=== PATIENT | female | born 1950 | race Caucasian/White ===

== ENCOUNTER 2023-10-26 22:11 | Inpatient (IN) | payer OTHER, SELFPAY ==
[2023-10-26] VITALS (15 sets, daily range): BP systolic 67–100; BP diastolic 44–79; BMI 42.7
--- NOTE | 2023-10-26 20:34 | ED.GENMED ---
History of Present Illness
General
Chief Complaint: Abdominal Pain
Source: patient
Exam Limitations: none
Time Seen by Provider: 10/26/23 20:15
Travel History
Have you had any contact with someone who has COVID-19?: No
Do you have any symptoms of coronavirus? Fever > 100 degrees, chills, cough, shortness of breath, sore throat, loss of taste or smell, muscle aches, or headache?: No
History of Present Illness
History of Present Illness:
See MDM
Past History
Past History
ED Past Medical History: Asthma, Cancer (Colon CA, ), COPD, HTN, Hypercholesterolemia, NIDDM and Other (DVT, IVC filter removed, Diverticulitis, IBS, Anemia, Umbilical hernia)
ED Past Surgical History: Bowel resection, Cholecystectomy, Gynecological (Ectopic ) and Other (Cyst removed from liver/Pancreas, Port)
Social History
Tobacco: Former smoker
Alcohol: None
Personal:
Living: with family
Phy Exam
Physical Exam
Physical Exam:
See MDM
Course
Orders/Labs/Results
Orders:
Orders
10/26/23 20:26
Electrocardiogram (*1) Urgent
Reason for Study: Other
Other Reason for Exam: sepsis
Cardiac Monitoring- Treatment ONCE
EKG- Treatment ONCE
IV Insert/Care/Rem.- Treatment PRN
Urinalysis Reflex To Culture Urgent
CR Chest - 2 Views Urgent
Comment:
Reason For Exam: weak
10/26/23 20:30
Type+Screen Urgent
Complete Blood Count/With Diff Urgent
Lactic Acid Q4H
Comment: CANCEL 2nd LACTIC ACID IF 1st LACTIC ACID IS LESS THAN 2
Blood Culture Q30M
RAVEN Source: Blood/Venous
Specimen Description:
Blood Culture Q30M
RAVEN Source: Blood/Venous
Specimen Description:
10/26/23 20:32
CT Abd/pelvis Wo Iv Cont Urgent
Comment: hx SBO from hernia
Reason For Exam: periumbilical pain
HYDROmorphone [Dilaudid] 0.5 mg IV NOW STA
10/26/23 20:50
Comprehensive Metabolic Panel Urgent
10/26/23 21:49
Vancomycin 2000 mg IVPB x 1 LOADING DOSE Vancomycin [Vancocin] 2,000 mg 0.9% Sodium Chloride 500 ml [Nss] 500 ml IV NOW
Zosyn 3.375 grams IVPB NOW Piperacillin/Tazo 3.375 Gram [Zosyn] 3.375 gram in 50 ml IV NOW
10/27/23 00:30
Lactic Acid Q4H
Comment: CANCEL 2nd LACTIC ACID IF 1st LACTIC ACID IS LESS THAN 2
Abnormal Lab Results
10/26/23 10/26/23
20:30 20:50
WBC 20.6 H 10^3/uL
(4.8-10.8)
Hct 35.1 L %
(37.0-47.0)
MCV 80.1 L fL
(81.0-99.0)
RDW 15.2 H %
(11.5-14.5)
MPV 10.6 H fL
(7.4-10.4)
Abs Immat Gran (auto) 0.2 H 10^3/uL
(0-0.05)
Absolute Neuts (auto) 19.2 H 10^3/uL
(1.4-6.5)
Absolute Lymphs (auto) 0.5 L 10^3/uL
(1.2-3.4)
Immature Gran % 1.1 H %
(0-0.5)
Neutrophils % 93.2 H %
(42.2-75.2)
Lymphocytes % 2.2 L %
(20.5-51.1)
Sodium 129 L mmol/L
(135-145)
Chloride 97 L mmol/L
(98-107)
Carbon Dioxide 17 L mmol/L
(22-30)
BUN 41 H mg/dl
(7-17)
Creatinine 1.1 H mg/dL
(0.6-1.0)
Glucose 145 H mg/dl
(70-99)
Lactic Acid 3.6 H mmol/L
(0.7-2.0)
AST 176 H U/L
(14-36)
ALT 126 H U/L
(0-35)
Alkaline Phosphatase 214 H U/L
(38-126)
Total Protein 4.7 L g/dl
(6.3-8.2)
Albumin 2.1 L g/dl
(3.5-5.0)
10/26/23 20:30
10/26/23 20:50
Vital Signs
Initial and Last Documented VS:
Initial Vital Signs
Temp Pulse Resp BP Pulse Ox
97.7 F 110 20 82/57 97
10/26/23 19:45 10/26/23 19:45 10/26/23 19:45 10/26/23 19:45 10/26/23 19:45
Last Documented Vital Signs
Temp Pulse Resp BP Pulse Ox
97.7 F 100 24 93/61 95
10/26/23 19:45 10/26/23 21:30 10/26/23 21:30 10/26/23 21:30 10/26/23 21:30
MDM/Problems Addressed
Differential Diagnosis Includes:
HPI and MDM Narrative:
73-year-old female presenting with mid abdominal pain and nausea. Patient did have a bowel movement today. Patient was recently admitted to the hospital with similar issues which was found to be closed-loop hernia. Patient complaining of
umbilical pain again
On exam,, patient is weak and fatigued. She has palpable mid abdominal hernia. Will give IV pain medicine and attempt to reduce
Physical exam
General: Uncomfortable
HEENT: protecting airway
Neck: appears supple
CV: No evidence of cyanosis
Resp: No accessory muscle use
Abd: Non-distended. Periumbilical hernia palpated. Suprapubic tenderness
Extremities: No deformities
Neuro: alert
Psych: Normal affect
Skin: Intact
Problems Addressed including Acute and Chronic Conditions affecting care:
1. Periumbilical hernia
Acuity: acute
Prognosis: unstable
Details: No skin changes noted. Patient has a history of closed-loop hernia. Will try to reduce and will obtain CT
Updates
After IV Dilaudid, I was tried to reduce the umbilical hernia. Patient feeling somewhat better. However, most of her pain appears to be along the suprapubic area. The suprapubic area feels large and distended.
CT is concerning for large umbilical hernia. Given the lab abnormalities, general surgery made aware with concern for possible bowel strangulation
General surgery evaluated the CT and diagnosed free air. Patient started on vancomycin and Zosyn.
Differential Diagnosis (but not limited to): Small bowel obstruction, umbilical hernia
Testing considered: Ultrasound
Drug therapy (if applicable): OTC meds, please see d/c instruction regarding Rx drugs
Amount and/or Complexity of Data Reviewed
Clinical info obtained from: Patient
External data reviewed: Recent admission for similar symptoms and found to have small bowel obstruction related to the hernia
Labs I independently reviewed (but not limited to): Elevated lactic acid and white blood cell count
Radiology: The CT scan was personally and independently reviewed. In addition, official CT report reviewed.
Pulse Ox: not hypoxic
EKG independently reviewed: N/A
Oracle Architect: Sinus rhythm
Critical Care: The high probability of a clinically significant, sudden or life threatening deterioration of the gastrointestinal system(s) required my full and direct attention, intervention and personal management. The aggregate critical care time
was 33 minutes. This time is in addition to time spent performing reported procedures but includes the following:
[x] Data Review and interpretation
[x] Patient assessment and monitoring of vital signs
[x] Documentation
[x] Medication orders and management
Risk of Complication:
Social Determinants of health: Good social support
Discussed with other providers: Hospitalist, general surgery
Escalation of Care includes Admit/Obs: Given the intra-abdominal free air, case discussed with surgery and will admit
Occasional wrong word or 'sound a like' substitutions may have occurred due to the inherent limitations of voice recognition software. Read the chart carefully and recognize, using context, where substitutions have occurred.
*Critical Care Note
Total Time (30-74mins, 75-104mins- exclusive of procedures): 33 min
ED Attending Note
-
Portions of this chart may have been created with voice recognition software.� Occasional wrong word or��sound alike� substitutions may have occurred due to the inherent limitations of voice recognition software.
Discharge Plan
Departure
Patient Disposition: Admit
Date of Disposition: 10/26/23
Time of Disposition: 21:55
Admit to: IMU
Presentation/result/management discussed w/ accepting MD/DO: Hospitalist
Discharge Problem:
Bowel perforation, Hernia, umbilical
Prescriptions:
No Action
pravastatin 40 MG tablet
40 mg PO QPM
Hold Instructions: Resume on 11/05/23. tll liver tests are stable
montelukast 10 MG tablet
10 mg PO QPM
albuterol sulfate 90 mcg/actuation Hfa Aerosol Inhaler
1 puff INHALATION R QIDPRN PRN (Reason: sob/wheezing)
losartan 25 mg Tablet
25 mg PO DAILY
insulin asp prt-insulin aspart [Novolog Mix 70-30FlexPen U-100] 100 unit/mL (70-30) Insulin Pen
12 unit SC QPM
cholecalciferol (vitamin D3) 25 mcg (1,000 unit) Tablet
25 mcg PO DAILY
insulin asp prt-insulin aspart [Novolog Mix 70-30FlexPen U-100] 100 unit/mL (70-30) Insulin Pen
12 unit SC DAILYPRN PRN (Reason: if BS >150) Qty: 0 0RF
Referrals:
UNKNOWN - PT DOES,NOT KNOW [Unknown Provider] -
Interventions
Interventions:
*Risk Screen - Suicide Last Done: 10/26/23 19:54
*Neglect/Abuse Screening Last Done: 10/26/23 19:49
*ED COVID-19 Vaccine History Last Done: 10/26/23 19:48
FV-Kjdqof-Azkcuxlahm Assessment Last Done: 10/26/23 19:52
[2023-10-26] MEDS: DILAUDID 0.5 MG IV (20:36)
[2023-10-26 20:46] LABS: % Eosinophils 0.6 % (0-6); % Immature Granulocytes 1.1 % (0-0.5); % Lymphocytes 2.2 % (20.5-51.1); % Monocytes 2.9 % (1.7-9.3); % Neutrophils 93.2 % (42.2-75.2); Absolute Eosinophils 0.1 10^3/uL (0-0.7); Absolute Immature Granulocytes 0.2 10^3/uL (0-0.05); Absolute Lymphocytes 0.5 10^3/uL (1.2-3.4); Absolute Monocytes 0.6 10^3/uL (0.1-0.6); Absolute Neutrophils 19.2 10^3/uL (1.4-6.5); Hematocrit 35.1 % (37.0-47.0); Hemoglobin 12.4 g/dL (12.0-16.0); Mean Corp Hgb Conc. 35.3 g/dL (33.0-37.0); Mean Corpuscular Hgb 28.3 pg (27.0-31.0); Mean Corpuscular Volume 80.1 fL (81.0-99.0); Mean Platelet Volume 10.6 fL (7.4-10.4); Nucleated Red Blood Cells % 0 %; Platelet Count 279 10^3/uL (130-400); Red Blood Cell Count 4.38 10^6/uL (4.20-5.40); Red Cell Dist. Width 15.2 % (11.5-14.5); White Blood Cell Count 20.6 10^3/uL (4.8-10.8)
[2023-10-26 20:50] LABS: Lactic Acid 3.6 mmol/L (0.7-2.0)
[2023-10-26 21:14] LABS: ALT (SGPT) 126 U/L (0-35); AST (SGOT) 176 U/L (14-36); Albumin 2.1 g/dl (3.5-5.0); Alkaline Phosphatase 214 U/L (38-126); Blood Urea Nitrogen 41 mg/dl (7-17); Calcium 9.2 mg/dl (8.4-10.2); Carbon Dioxide 17 mmol/L (22-30); Chloride 97 mmol/L (98-107); Estimated Creatinine Clearance 12 ml/min; Glucose 145 mg/dl (70-99); Potassium 3.5 mmol/L (3.5-5.1); Sodium 129 mmol/L (135-145); Total Bilirubin 1.2 mg/dl (0.2-1.3); Total Protein 4.7 g/dl (6.3-8.2); eGFR 53.06
--- NOTE | 2023-10-26 21:56 | HPS.HSE ---
Addendum entered and electronically signed by Sana Weller MD 10/26/23 22:47:
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
presenting with abdominal pain.� Patient septic with hypotension, tachycardia, leukocytosis.� Examination consistent with incarcerated umbilical hernia.� CT abdomen shows acute small bowel perforation within an anterior abdominal wall hernia with
pneumoperitoneum and severe anterior abdominal wall soft tissue emphysema.� There is also a 13.3 cm complex abscess in the lower anterior abdominal wall.� There is also severe peritoneal metastatic disease, hepatic metastases, severe chronic left
hydroureteronephrosis secondary to obstructing malignancy in the left retroperitoneum.�
N.p.o., IV fluids, Zosyn.� Surgery to take to the OR.
Original Note:
Family Physician
-
Family Physician: Yovana Duarte DO
Chief Complaint
-
abdominal pain associated with nausea/diarrhea
History of Present Illness
73 year old with PMH for colon ca, COPD, HTN, HLD, IDDM, DVT, diverticulitis, IBS, anemia umbical hernia presented to us with mid abdomen pain since . stated nausea, stated multiple loose stools per day. denied fever, chills, AVILA, dizzy.
denied chest pain, sob. denied dysuria or hematuria.
CT with ACUTE SMALL BOWEL PERFORATION within an ANTERIOR ABDOMINAL WALL HERNIA with PNEUMOPERITONEUM and SEVERE ANTERIOR ABDOMINAL WALL SOFT TISSUE EMPHYSEMA.
2. � LARGE 13.3 cm COMPLEX ABSCESS in the lower anterior abdominal wall inferior to the hernia.
3. � SEVERE PERITONEAL METASTATIC DISEASE (METASTATIC COLON CANCER).
4. � Multiple hepatic metastases.
5. � Severe chronic left hydroureteronephrosis secondary to obstructing malignancy in the left retroperitoneum.
6. � Severe diffuse hepatic steatosis.
7. � Previous cholecystectomy and sigmoidectomy.
received vanco and Zosyn. admitting for further management.
patient was admitted 10/19 to 10/23 with SBO improved with conservative measures. patient was also noted to have liver mass, slightly elevated CEA recommended oncology follow up.
Medical History
Past Medical History
Past Medical History: Reports Other
Additional Past Medical History:
Asthma, COPD, history of DVT, hypertension, hyperlipidemia, history of diverticulitis, IBS, stress incontinence, history of colon cancer
Past Surgical History: Reports Other
Additional Past Surgical History:
Ectopic surgery, cholecystectomy, partial bowel surgery secondary to cyst, IVC filter placement, cyst removed from the pancreas, colectomy for cancer, right chest port placement
Social History
Tobacco: Non-smoker
Alcohol: None
Drug: None
Personal: Single
Living: With Family
Family History
Family History: Not pertinent
Allergies / Home Medications
Allergies reflects when Allergies were last updated in [facility].
Home Medications with original date entered in [facility]
Allergy/Medication List:
Allergies
Allergy/AdvReac Type Severity Reaction Status Date / Time
levofloxacin Allergy Unknown Unknown Verified 10/26/23 19:51
mold Allergy Unknown Unknown Verified 10/26/23 19:51
Iodinated Contrast Media Allergy heart Verified 10/26/23 19:51
races,SOB
metformin Allergy SOB,heart Verified 10/26/23 19:51
race
oxaliplatin Allergy Shortness Verified 10/26/23 19:51
of Breath
pollen extracts Allergy Nasal Verified 10/26/23 19:51
congestion
- seasonal
Sulfa (Sulfonamide Allergy SOB ,Heart Verified 10/26/23 19:51
Antibiotics) race
Tetanus Vaccines and Toxoid Allergy heart Verified 10/26/23 19:51
racing ,SOB
Home Medications
montelukast 10 mg tablet 10 mg PO QPM asthma 01/21/21
pravastatin 40 mg tablet 40 mg PO QPM High cholesterol 01/21/21
albuterol sulfate 90 mcg/actuation aerosol inhaler 1 puff inhalation R QIDPRN PRN sob/wheezing 05/19/23
cholecalciferol (vitamin D3) 25 mcg (1,000 unit) tablet 25 mcg PO DAILY Supplement 10/19/23
insulin aspar prot-insulin aspart 100 unit/mL (70-30) subcutaneous pen (Novolog Mix 70-30FlexPen U-100) 12 unit SC QPM Diabetes 10/19/23
losartan 25 mg tablet 25 mg PO DAILY Blood Pressure 10/19/23
insulin aspar prot-insulin aspart 100 unit/mL (70-30) subcutaneous pen (Novolog Mix 70-30FlexPen U-100) 12 unit (0.12 mL) SC DAILYPRN PRN if BS >150 #0 mL 10/23/23
Review of Systems
-
Constitutional: Reports No Symptoms
EENT: Reports No Symptoms
Respiratory: Reports No Symptoms
Cardiac: Reports No Symptoms
Abdomen/GI: Reports Abdominal Pain, Nausea, Vomiting and Diarrhea
: Reports No Symptoms
Musculoskeletal: Reports No Symptoms
Skin: Reports No Symptoms
Neurological: Reports No Symptoms
Endocrine: Reports No Symptoms
Hematologic/Lymphatic: Reports No Symptoms
Psych: Reports No Symptoms
Physical Exam
Vital Signs
Vital Signs
Temp Pulse Resp BP Pulse Ox
97.7 F 100 24 93/61 95
10/26/23 19:45 10/26/23 21:30 10/26/23 21:30 10/26/23 21:30 10/26/23 21:30
Physical Exam
General: Well Developed, Well Nourished and No Apparent Distress
HEENT: NormoCephalic, Moist mucous membranes and Atraumatic
Respiratory: Clear
Cardiac: S1/S2 and Regular Rhythm; No Murmur or Rub
GI: Soft, Tender, Distended and Other (umblical hernia); No Organomegaly
Rectal: Deferred by Provider
Musculoskeletal: No Clubbing, No Cyanosis and No Edema
Skin: No Rash
Neuro: AO x 3 and Nonfocal/grossly intact
Psych: Calm
Laboratory Results
-
10/26/23 20:30
10/26/23 20:50
Laboratory Results
Lactic Acid 3.6 mmol/L (0.7-2.0) H 10/26/23 20:30
Total Bilirubin 1.2 mg/dl (0.2-1.3) 10/26/23 20:50
AST 176 U/L (14-36) H 10/26/23 20:50
ALT 126 U/L (0-35) H 10/26/23 20:50
Alkaline Phosphatase 214 U/L (38-126) H 10/26/23 20:50
Data Reviewed
-
CT Scan: Report Reviewed by me
Lab Data: Labs Reviewed by me
Impression/Plan
-
#severe sepsis/ abdominal pain associated with n/diarrhea likely from incarcerated hernia/ small bowel perforation/complex abscess
-CT abdomen pelvis with ACUTE SMALL BOWEL PERFORATION within an ANTERIOR ABDOMINAL WALL HERNIA with PNEUMOPERITONEUM and SEVERE ANTERIOR ABDOMINAL WALL SOFT TISSUE EMPHYSEMA. LARGE 13.3 cm COMPLEX ABSCESS in the lower anterior abdominal wall
inferior to the hernia.� SEVERE PERITONEAL METASTATIC DISEASE (METASTATIC COLON CANCER). � Multiple hepatic metastases.� Severe chronic left hydroureteronephrosis secondary to obstructing malignancy in the left retroperitoneum.� Severe diffuse
hepatic steatosis.� Previous cholecystectomy and sigmoidectomy.
-severe sepsis as evident by wbc, hypotension, tachycardia, lactic acid
-blood culture sent from ER
-iv v Zosyn
-NPO
-fluids continued for hydration
-surgery consulted
#hyponatremia/dusty/metabolic acidosis
-na 129, cr 1.1, co2 17
-sodium bicarb push
-fluids continued
-monitor BMP in am
#hxt of colon ca
-hxt of liver mets
-s/p resection
# hxt of Hypertension
-patient is hypotensive in ER
-hold losartan
# Hyperlipidemia-hold pravastatin with elevated LFTs
# Gbfoessv-Ikov-Fcyhj and sliding scale coverage
-hold 70/30
-sliding scale
-
# History of sigmoidectomy 2020 for sigmoid carcinoma
Patient finished 6 months of chemotherapy in June 2023 and is on surveillance.
#Liver masses concerning- oncology evaluation
-LFT elevation from liver mass
# Chronic hydronephrosis
-Left nephrostomy tube was advised in the past by urology however patient and daughter opted not to do it.
-Atrophy of the kidney noted on the left side-patient and daughter aware about this
# Asthma/COPD-patient takes Singulair as outpatient
# History of DVT IVC filter placement and removal in December 2021
# DVT prophylaxis
-scd
# CODE STATUS-full code
[2023-10-26] MEDS: ZOSYN 50 IV (22:27)
--- NOTE | 2023-10-26 22:38 | CON.GS ---
Medical History
-
Chief Complaint: Abdominal pain
History of Present Illness:
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
sigmoidectomy with SBR x2 by Drs. Pino and Abraham in 05/2021. She was recently admitted to from 10/19 to 10/23 for management of an SBO. She was followed by the CRS service at that time. Per report she had return of bowel function and was
tolerating LRD. She reports abdominal pain associated with her hernia since discharge. No significant nausea or vomiting. No fevers or chills. Daughter is at bedside and was present for the encounter.
Past Medical History
Past Medical History: Cancer (Stage IV colon cancer), COPD, HTN, Hypercholesterolemia and IDDM
Past Surgical History: Bowel Resection (Robotic sigmoidectomy and SBRx2 in 2020, Robert-en-Y hepaticojejunostomy as a child) and Cholecystectomy
Social History
Tobacco: Former Smoker
Alcohol: None
Drug: None
Family History
Family History: Reviewed & Not Pertinent
Allergies / Home Medications
Allergy/AdvReac Type Severity Reaction Status Date / Time
levofloxacin Allergy Unknown Unknown Verified 10/26/23 19:51
mold Allergy Unknown Unknown Verified 10/26/23 19:51
Iodinated Contrast Media Allergy heart Verified 10/26/23 19:51
races,SOB
metformin Allergy SOB,heart Verified 10/26/23 19:51
race
oxaliplatin Allergy Shortness Verified 10/26/23 19:51
of Breath
pollen extracts Allergy Nasal Verified 10/26/23 19:51
congestion
- seasonal
Sulfa (Sulfonamide Allergy SOB ,Heart Verified 10/26/23 19:51
Antibiotics) race
Tetanus Vaccines and Toxoid Allergy heart Verified 10/26/23 19:51
racing ,SOB
Medication Instructions Recorded Confirmed Type
montelukast 10 mg tablet 10 mg PO QPM asthma 01/21/21 10/19/23 History
pravastatin 40 mg tablet 40 mg PO QPM High cholesterol 01/21/21 10/19/23 History
insulin aspar prot-insulin aspart 12 unit SC QPM Diabetes 10/19/23 10/19/23 History
100 unit/mL (70-30) subcutaneous
pen (Novolog Mix 70-30FlexPen
U-100)
losartan 25 mg tablet 25 mg PO DAILY Blood Pressure 10/19/23 10/19/23 History
Review of Systems
-
A 10 point review of systems was completed, and was negative except as per HPI.
Physical Exam
Vital Signs
Temp Pulse Resp BP Pulse Ox
97.7 F 101 21 99/79 97
10/26/23 19:45 10/26/23 22:30 10/26/23 22:30 10/26/23 22:30 10/26/23 22:30
10/25/23 10/26/23 10/27/23
06:59 06:59 06:59
Actual Weight 99.2 kg
Body Mass Index (BMI) 267.5
Lab Results
10/26/23 20:30
10/26/23 20:50
WBC 20.6 10^3/uL (4.8-10.8) H 10/26/23 20:30
Hgb 12.4 g/dL (12.0-16.0) 10/26/23 20:30
Hct 35.1 % (37.0-47.0) L 10/26/23 20:30
Plt Count 279 10^3/uL (130-400) 10/26/23 20:30
Abs Immat Gran (auto) 0.2 10^3/uL (0-0.05) H 10/26/23 20:30
Neutrophils % 93.2 % (42.2-75.2) H 10/26/23 20:30
Physical Exam
General: Well Developed, Well Nourished, No Apparent Distress and Pain
Respiratory: Non Labored Respirations
Cardiac: Irregular Rhythm (Tachycardic)
GI: Soft, Tender (Diffusely, most over hernia), Distended, Incisions (midline well healed), Obese and Other (Peritoneal)
Skin: Warm and Dry
Neuro: Nonfocal/Grossly Intact
Data Reviewed
-
CT Scan: Image Personally Visualized and interpreted
Labs: Labs Reviewed by me
Old Records: Reviewed
Assessment / Plan
-
Patient is a 73 yo F p/w perforated viscus likely secondary to a chronically incarcerated ventral incisional hernia
Natural history and pathophysiology of hernias and perforated bowel was discussed. CT scan imaging and labs were reviewed. Options for management including medical management with bowel rest and antibiotics and a more focused on comfort measures
only versus surgical management with exploratory laparotomy and bowel resection were considered and discussed. Goals of care discussion was had and patient wishes to proceed with further treatment. She is at significantly high risk for operative
complications given her medical comorbidities and clinical presentation with sepsis, perforated bowel, and abscess formation. Using the ACS risk calculator she has a 40% risk of a serious complication, 71% risk of , and 79% risk of discharge
to a half-way or rehab facility. The severity of her illness was discussed with patient and daughter. Patient wished to proceed with surgery.
Plan for exploratory laparotomy, lysis of adhesions, possible bowel resection, possible ostomy, and primary repair of incisional hernia. The procedure itself, as well as the risks, benefits, and alternatives was discussed. Specifically, we
discussed the risks of bleeding, infection, injury to surrounding structures (bowel, bladder, ureters), wound complications, recurrent bowel obstructions, cardiopulmonary complications, need for prolonged intubation, and . Typical
postprocedural recovery including a prolonged hospital stay and discharged to a half-way or rehab facility was discussed. All questions answered. Consent signed.
-- Exploratory laparotomy, lysis of adhesions, possible bowel resection, possible ostomy, and primary repair of incisional hernia
-- NPO, IVF, NGT placement
-- Zosyn
-- Admit to ICU post-operatively
--- NOTE | 2023-10-26 22:59 | W.SUR.PREOP ---
Pre-Operative Surgical Note
-
I have examined this patient prior to the performance of the scheduled procedure.
The patient's condition is unchanged from the time of the current History and
Physical and the patient is able to undergo the scheduled procedure.
[2023-10-26] MEDS: SODIUM BICARBONATE 50 MEQ IV (23:25)
[2023-10-26] MEDS: VANCOCIN 540 MG IV (23:25)
[2023-10-27] VITALS (67 sets, daily range): BP systolic 72–130; BP diastolic 39–93; BMI 42.6
--- NOTE | 2023-10-27 01:46 | W.IMMPOSTOP ---
Addendum entered and electronically signed by Darwin Howell MD 10/29/23 08:29:
Dic#[id number]
Original Note:
Surgical Immed Post Op Note
-
Primary Surgeon: Dante
Assisting Surgeon: None
Pre-op Diagnosis: Perforated bowel
Post-op Diagnosis: Perforated bowel
Procedure Performed: Exploratory laparotomy
Anesthesia Type: General
Specimen / Cultures:
1. Abdominal fluid for culture and cytology
Estimated Blood Loss: 3 cc
Complications: None immediately
Operative Findings:
1. Hernia reducible and SB contents viable
2. Frozen pelvis with firm tumor, multiple densely adherent SB loops within the pelvis and adherent to fascia, perforation of small bowel at site of metastatic disease within the fascia, wide feculent contamination within the entire soft tissue
space of the pannus and abdomen
3. < 100 cm proximal small bowel and difficult to determine exact location given prior procedures
4. No good target for enterocolonic bypass, patient goals of care against proximal ostomy
5. Intra-operative discussion with patients daughter and decision maker regarding options, decision to focus on comfort measures only and close abdomen
Plan:
-- NPO, IVF, Zosyn
-- Full code for tonight, tentative plan for transition to CLERICAL ADVISER during day shift (daughter on board, hopeful to allow conversation and decision with patient)
[2023-10-27 01:49] LABS: Glucose - Point of Care 103 mg/dl (70-99)
[2023-10-27] MEDS: NSS 1000 IV ×4 (01:58→14:57)
[2023-10-27 02:22] LABS: Lactic Acid 2.4 mmol/L (0.7-2.0)
[2023-10-27] MEDS: LR 500 IV (02:57)
[2023-10-27] MEDS: LEVOPHED 250 IV ×6 (02:59→23:43)
[2023-10-27] MEDS: ZOSYN 50 IV ×4 (03:06→21:32)
[2023-10-27 05:05] LABS: Hematocrit 35.4 % (37.0-47.0); Hemoglobin 12.5 g/dL (12.0-16.0); Mean Corp Hgb Conc. 35.3 g/dL (33.0-37.0); Mean Corpuscular Hgb 29.1 pg (27.0-31.0); Mean Corpuscular Volume 82.5 fL (81.0-99.0); Mean Platelet Volume 10.3 fL (7.4-10.4); Platelet Count 352 10^3/uL (130-400); Red Blood Cell Count 4.29 10^6/uL (4.20-5.40); Red Cell Dist. Width 15.2 % (11.5-14.5); White Blood Cell Count 21.3 10^3/uL (4.8-10.8)
[2023-10-27 05:18] LABS: Lactic Acid 2.6 mmol/L (0.7-2.0)
[2023-10-27 05:20] LABS: INR 1.64; PT 19.7 Sec (11.4-14.6)
[2023-10-27 05:21] LABS: APTT 33.7 Sec (23.4-35.0)
[2023-10-27 05:47] LABS: ALT (SGPT) 106 U/L (0-35); AST (SGOT) 146 U/L (14-36); Albumin 1.7 g/dl (3.5-5.0); Alkaline Phosphatase 184 U/L (38-126); Blood Urea Nitrogen 39 mg/dl (7-17); Calcium 8.3 mg/dl (8.4-10.2); Carbon Dioxide 19 mmol/L (22-30); Chloride 100 mmol/L (98-107); Direct Bilirubin 0.8 mg/dl (0.0-0.4); Estimated Creatinine Clearance 44 ml/min; Glucose 117 mg/dl (70-99); Potassium 3.5 mmol/L (3.5-5.1); Sodium 132 mmol/L (135-145)
[2023-10-27 06:04] LABS: Glucose - Point of Care 116 mg/dl (70-99)
--- NOTE | 2023-10-27 06:22 | PTCARENOTE ---
received pt from PACU, per OR nurse, patient was unable to have surgery performed due to complications. patients family was made aware of what happened from the OR Doctor. pts family wants her monitored throughout night, will be back in am to
discuss hospice plans.
patient has hypotention, patient now has levo running and titrated from 2 to 20 mcg, pt has ivf at 100 as well, patient has ashley which is oliguric for janell urine, MD aware of decreased urine output. no new orders.
labs drawn and sent, no new orders either.
patient has abdominal wound covered with abd pad, no pain at this time, npo with ice chips, pt has no difficulty swallowing at this time.
daughter at bedside and will return in am.
[2023-10-27] MEDS: NOVOLOG FLEXPEN-LOW RESISTANCE SC ×2 (07:54→12:30)
[2023-10-27] MEDS: OFIRMEV 100 IV ×2 (08:51→16:34)
[2023-10-27] MEDS: PITRESSIN 100 IV ×2 (08:51→18:25)
--- NOTE | 2023-10-27 09:25 | CON.INTV ---
Addendum entered and electronically signed by Darwin Beth MD 10/29/23 13:10:
Critical care statement (referring to when patient was seen and evaluated on 10/27/2023): A total of 40 minutes of critical care time was provided for this patient today. This includes management of unstable vital signs, evaluation of the patient at
bedside, reviewing the patient's pertinent medical records including radiographs, microbiology, laboratory evaluations, and discussion with primary team, consultants, pharmacy, nutrition, physical therapy, case management, charge nurse, critical
care nursing, and respiratory therapy.
Addendum entered and electronically signed by Darwin Beth MD 10/27/23 15:47:
Addition to physical exam:
+3 LE pitting edema
Reduced bowel sounds
Original Note:
Consultation
Consultation Request
Date/Time Consultation Requested: 10/26/2023 - 2308
Date/Time Consultation Performed: 10/27/2023 - 832
Requesting Provider: Kelsey ROUSE
Performing Provider: Dr. Beth
Reason for Consultation: Shock
Medical History
-
Chief Complaint: Abdominal pain
History of Present Illness:
73-year-old female with a past med history of metastatic sigmoid invasive adenocarcinoma (originally Dx 05/2021) s/p sigmoidectomy + partial small bowel resections (due to small bowel adhesions), umbilical hernia, COPD, history of DVT, hypertension,
hyperlipidemia and DM type II with recent hospitalization on 10/19or due to abdominal pain from SBO. Conservative management employed with n.p.o. status, IV fluids and pain control. CT A/P at the time showed a 2.5 cm mass in the LLL
of the liver, which is new compared to prior CT C/A/P from April 2023 suggesting she has worsening hepatic spread of her cancer. She was going to see oncology as an outpatient to discuss restarting chemotherapy which was last given in summer 2022.
Now as of yesterday, patient had pain in her hernia spot, was pale, diaphoretic and blood pressure was in the 60s. In the ER her BP was 84/58, pulse rate 99, afebrile to 97.7 �F, and saturating 96% on room air. She had abdominal pain and was
vomiting, and guarding her LLQ of her abdomen. Labs showed hyponatremia to 129, metabolic acidosis with a serum bicarbonate of 17, AG of 15, elevated creatinine of 1.1, lactate was elevated at 3.6, leukocytosis to 20.6, and she was given pain
medications with Dilaudid. CT abdomen/pelvis showed small bowel perforation within her known anterior abdominal hernia with pneumoperitoneum and severe anterior abdominal wall soft tissue emphysema. Also just inferior to the anterior abdominal
wall hernia was a large 13.3 cm complex abscess. There is also evidence of hepatic metastasis, peritoneal metastatic disease, and diffuse hepatic steatosis with chronic left hydroureteronephrosis. Surgery was consulted for exploratory laparotomy,
and intraoperative findings revealed densely adherent small bowel loops within the pelvis and adherent to fascia with small bowel perforation seen at the site of metastatic disease within the fascia, and fecal contamination within the peritoneum.
Less than 100 cm of proximal small bowel was seen and it was difficult to determine an exact location with no good target for enterocolonic bypass. Intraoperative discussion held with the surgeon and the daughter and decision made to focus on
comfort. No surgery was done, the abdomen was closed and the patient was transferred to the medical ICU as she was hypotensive requiring Levophed. Critical care services consulted for additional recommendations.
PMHx: Sigmoid adenocarcinoma s/p sigmoidectomy + partial small bowel resection (05/2021) + adjuvant chemotherapy (summer 2022) c/b hepatic metastasis, COPD, Hx of DVT s/p IVC filter, hypertension, hyperlipidemia, DM type II, chronic hydronephrosis,
fatty liver, history of SBO due to colon adenocarcinoma, umbilical hernia, history of COVID-19 (October 25)
PSHx: Ectopic surgery, cholecystectomy, partial bowel surgery secondary to cyst, IVC filter placement, cyst removed from the pancreas, colectomy for cancer, right chest port placement
Past Medical History
Past Medical History: Other (above as per HPI)
Past Surgical History: Other (above as per HPI)
Social History
Tobacco: Former Smoker
Alcohol: None
Drug: None
Living: With Family
Family History
Family History: CAD (father)
Allergies / Home Medications
Allergies
Allergy/AdvReac Type Severity Reaction Status Date / Time
Iodinated Contrast Media Allergy heart Verified 10/26/23 19:51
races,SOB
levofloxacin Allergy Unknown Verified 10/26/23 22:39
metformin Allergy SOB,heart Verified 10/26/23 19:51
race
mold Allergy Unknown Verified 10/26/23 22:39
oxaliplatin Allergy Shortness Verified 10/26/23 19:51
of Breath
pollen extracts Allergy Nasal Verified 10/26/23 19:51
congestion
- seasonal
Sulfa (Sulfonamide Allergy SOB ,Heart Verified 10/26/23 19:51
Antibiotics) race
Tetanus Vaccines and Toxoid Allergy heart Verified 10/26/23 19:51
racing ,SOB
Home Medications
Medication Instructions Recorded Confirmed Last Taken Type
montelukast 10 mg tablet 10 mg PO QPM asthma 01/21/21 10/26/23 10/18/23 History
pravastatin 40 mg tablet 40 mg PO QPM High cholesterol 01/21/21 10/26/23 10/18/23 History
insulin aspar prot-insulin aspart 12 unit SC QPM Diabetes 10/19/23 10/26/23 10/18/23 History
100 unit/mL (70-30) subcutaneous
pen (Novolog Mix 70-30FlexPen
U-100)
losartan 25 mg tablet 25 mg PO DAILY Blood Pressure 10/19/23 10/26/23 10/18/23 History
Review of Systems
-
History Source: Patient
All other systems: Negative unless noted (12 point ROS performed and is negative unless mentioned above.)
Vitals / Labs / Diagnostic Testing
Vital Signs
Temp Pulse Resp BP Pulse Ox
99.6 F 114 19 92/60 99
10/27/23 08:06 10/27/23 08:15 10/27/23 08:15 10/27/23 07:49 10/27/23 08:15
Lab Data
10/27/23 04:50
10/27/23 04:50
Laboratory Results
10/27/23
04:50
PT 19.7 H
INR 1.64
APTT 33.7
Diagnostic Testing:
Physical Exam
-
HEENT: Normocephalic and Anicteric
Cardiovascular: S1/S2 and Other (Tachycardic)
Respiratory: Clear, Wheeze (Negative) and Rales (bibasilar)
GI: Soft, Distended, Tender (diffusely tender to palpation without peritoneal signs) and Other
Neurology: AO x 3 and Tremors (Negative)
Skin: Warm and Dry
General: Pain (With movement otherwise she appears comfortable) and Chills (Negative)
Assessment
-
Assessment: 73-year-old obese female with a PMHx of metastatic sigmoid invasive adenocarcinoma (originally Dx 05/2021) s/p sigmoidectomy + partial small bowel resections (due to small bowel adhesions), umbilical hernia, COPD, history of DVT s/p
IVC-filter, hypertension, hyperlipidemia and DM type II with recent hospitalization on 10/19or due to abdominal pain from SBO, resolved with conservative management and with imaging showing worsening hepatic metastasis with plans to
follow-up with oncology as an outpatient. Patient now presents with severe abdominal pain found to be hypotensive and imaging revealed small bowel perforation within her anterior abdominal hernia. Patient emergently brought to surgery for
exploratory laparotomy which revealed fecal contamination within her abdomen, severe metastatic disease with small bowel perforation seen at the site of metastasis, and <100 cm of proximal small bowel seen with no good target for an entero-colonic
bypass. Decision made intraoperatively to focus on comfort, and the procedure ended and patient was transferred to the ICU on vasopressors for further management. Critical care services consulted for additional recommendations/management decisions.
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
chronic hydronephrosis, fatty liver, history of SBO due to colon adenocarcinoma, umbilical hernia, history of COVID-19 (October 25)
Impression:
#Small bowel perforation secondary to metastatic invasive sigmoid adenocarcinoma c/b stercoral peritonitis found intra-operatively (ex-lap OR date 10/27/2023 - no surgical intervention performed)
#Septic shock due to above (she also has abscess inferior to her known anterior abdominal wall hernia)
#Lactic acidosis due to shock state as above
#Acute kidney injury due to shock with hypotension and ATN
#Hyponatremia -she does have some chronic hyponatremia with baseline sodium approximately 132�134mmol/L
#Transaminitis - due to hepatic metastasis in the setting of shock
#Metastatic colon adenocarcinoma with hepatic, mesenteric and peritoneal metastasis with Hx of sigmoidectomy + partial small bowel resection
#Abdominal wall complex abscess inferior to known abdominal wall hernia
#Severe chronic left hydroureteronephrosis secondary to metastatic disease
Plan:
- Considering pt has metastatic colon cancer with Hx of partial small bowel resection and no good target for enterocolonic bypass, there is no surgical intervention available besides a proximal ostomy, which the pt is not interested in
- Continue antibiotics with zosyn for now, as the patient is interested in comfort care and discussion of transition to hospice, which I discussed with the patient as well as the daughter and the patient's die sinker apprentice (patient is heavily involved in
their gnosticism and town)
- Continue vasopressors with Levophed and vasopressin for now with goal MAP >65
- Once patient is transitioned to comfort care, will stop antibiotics as well as vasopressors and transition to comfort measures only
- Hospice has been consulted by me
- For now, keep NPO except for small sips of fluids
- trend lactate until <2mmol/L and continue to trend LFTs and sCr; however given that pt is interested in hospice and transitioning to comfort care, little benefit in trending labs as sticking her will only cause more discomfort and in grand scheme
it will not change her chances for recovery given how extensive her cancer is and now with septic shock with stercoral peritonitis; hence I will cancel the q4hr lactate that is ordered and stick to just AM labs; the frequency of lab checks can be
adjusted depending on her clinical status.
- DVT ppx - SCDs for now and then fully DC once pt transitions to hospice
I spoke directly with the patient's die sinker apprentice, as well as the patient herself and the patient's daughter. Patient is interested in transitioning to comfort care and speaking with hospice. When she first arrived to the ICU she wanted to remain full
code, however after reviewing this in detail and considering her diagnosis of metastatic colon cancer with septic shock and without surgical intervention or ability to obtain chemotherapy in her near future, her short-term mortality is extremely
high. Even if we were to continue the vasopressors and keep her n.p.o. and continue antibiotics, without surgical intervention to treat her small bowel perforation her overall prognosis is severely grim. This was discussed with the patient in
layman's terms, and she understands that she does not have long to live and she is okay with this. In light of this, if her heart were to stop or if she were to stop breathing, she does not want to have compressions done and she does not want to be
put on the ventilator. I will thus change her Code Status to DNR/DNI but continue with medical treatment otherwise while awaiting transition to hospice. Emotional support was provided to the patient and all questions were answered.
Data:
CT Abd/Pelvis w/o IV contrast 10-26-2023:
1. � ACUTE SMALL BOWEL PERFORATION within an ANTERIOR ABDOMINAL WALL HERNIA with PNEUMOPERITONEUM and SEVERE ANTERIOR ABDOMINAL WALL SOFT TISSUE EMPHYSEMA.
2. � LARGE 13.3 cm COMPLEX ABSCESS in the lower anterior abdominal wall inferior to the hernia.
3. � SEVERE PERITONEAL METASTATIC DISEASE (METASTATIC COLON CANCER).
4. � Multiple hepatic metastases.
5. � Severe chronic left hydroureteronephrosis secondary to obstructing malignancy in the left retroperitoneum.
6. � Severe diffuse hepatic steatosis.
7. � Previous cholecystectomy and sigmoidectomy.
--- NOTE | 2023-10-27 11:06 | CON.ONC ---
Impression
Impression
metastatic colon cancer, admitted with bowel perforation; s/p ex lap 10/26/23, not amenable to any interventions
Plan
Plan
Discussed with patient and daughter - unfortunately, her extensive metastatic disease with bowel perforation and abscess/infection is not treatable surgically or medically. Recommended we focus on comfort measures. Discussed code status and she
initially requested FULL CODE, though I strongly encouraged DNR/DNI. Will follow along peripherally.
Patient History
History of Present Illness
This is a 73 yo F w/ h/o colon cancer, metastatic, who's been on a chemo treatment break for the past few months after a good response to chemo in summer/early fall 2022. She was hospitalized last week with SBO in the setting of cancer progression,
treated conservatively. She contacted our office yesterday with N/V and 10/10 pain, and was sent to the ER. CXR showed free air. CT showed acute small bowel perforation with a a large abscess and severe peritoneal metastatic disease. She was taken
to the OR by Dr. Howell last night, found to have a frozen pelvis with firm tumor; hernia was reduced and SB contents appeared viable. No good target for bypass, so after discussion with daughter, a decision was make to close the abdomen and focus
on comfort measures.
Patient seen this am, daughter and forming machine operator at bedside. Some pain, but comfortable.
Past-Medical/Surgical History
PMH/PSH - as per the hpi
Patient Medication
Medication Instructions Recorded Confirmed Last Taken Type
montelukast 10 mg tablet 10 mg PO QPM asthma 01/21/21 10/26/23 10/18/23 History
pravastatin 40 mg tablet 40 mg PO QPM High cholesterol 01/21/21 10/26/23 10/18/23 History
insulin aspar prot-insulin aspart 12 unit SC QPM Diabetes 10/19/23 10/26/23 10/18/23 History
100 unit/mL (70-30) subcutaneous
pen (Novolog Mix 70-30FlexPen
U-100)
losartan 25 mg tablet 25 mg PO DAILY Blood Pressure 10/19/23 10/26/23 10/18/23 History
Active Medications
Generic Name Dose Route Start Last Admin
Trade Name Freq PRN Reason Stop Dose Admin
Dextrose 12.5 grams 10/27/23 01:35
Dextrose 50% (0.5 Grams/Ml) 50 Ml Syringe IV 11/24/23 01:34
[id number] PRN
hypoglycemia
Protocol
Glucagon 1 mg 10/27/23 01:35
Glucagon 1 Mg Vial IM 11/24/23 01:34
PRN PRN
hypoglycemia
Protocol
Hydromorphone HCl 0.5 mg 10/26/23 22:16
Hydromorphone 0.5 Mg/0.5 Ml Syringe IV 10/27/23 22:16
PACU-Q5MPRN PRN
severe pain
Hydromorphone HCl 0.25 mg 10/26/23 22:16
Hydromorphone 0.5 Mg/0.5 Ml Syringe IV 10/27/23 22:16
PACU-Q5MPRN PRN
moderate pain
Sodium Chloride 1,000 mls @ 100 mls/hr 10/26/23 22:30 10/27/23 03:04
Nss IV 10/27/23 22:16 1,000 mls
PER PROTOCOL CHRISTIANO Administration
Sodium Chloride 1,000 mls @ 80 mls/hr 10/26/23 22:45 10/27/23 01:58
Nss IV 1,000 mls
[id number] CHRISTIANO Administration
Piperacillin Sod/Tazobactam Sod 3.375 gram in 50 mls @ 100 mls/hr 10/27/23 04:00 10/27/23 10:14
Zosyn IV 50 mls
Q6H CHRISTIANO Administration
Norepinephrine Bitartrate 4 mg in 250 mls @ 0 mls/hr 10/27/23 03:00 10/27/23 07:52
Levophed IV 250 mls
PER PROTOCOL CHRISTIANO Administration
Protocol
Per Protocol
Vasopressin 20 units in 100 mls @ 0 mls/hr 10/27/23 08:45 10/27/23 08:51
Pitressin IV 100 mls
PER PROTOCOL CHRISTIANO Administration
Protocol
Per Protocol
Acetaminophen 1,000 mg in 100 mls @ 400 mls/hr 10/27/23 08:41 10/27/23 08:51
Ofirmev IV 10/28/23 08:40 100 mls
Q8HPRN PRN Administration
MILD TO MODERATE PAIN
Protocol
Insulin Aspart 0 units 10/27/23 07:30 10/27/23 07:54
Insulin Aspart Low Resistance 300 Units/3 Ml Pen.Injctr SC 11/24/23 07:29 Not Given
AC CHRISTIANO
Protocol
Meperidine HCl 12.5 mg 10/26/23 22:16
Meperidine 25 Mg/Ml Injection IV 10/27/23 22:16
PACU-Q5MPRN PRN
shivers
Ondansetron HCl 4 mg 10/26/23 22:16
Ondansetron 4 Mg/2 Ml Vial IV 10/27/23 22:16
PACU-ONCEPRN PRN
nausea/vomiting
Prochlorperazine Edisylate 5 mg 10/26/23 22:16
Prochlorperazine 10 Mg/2 Ml Vial IV 10/27/23 22:16
PACU-ONCEPRN PRN
nausea/vomiting
Sodium Chloride 0 flush 10/26/23 23:00
Sodium Chloride 0.9% (Flush) Syringe IV 11/23/23 22:59
PER PROTOCOL CHRISTIANO
Review of Systems
-
All Other Systems: Not reviewed unless documented
Physical Exam
-
General: No Apparent Distress and Conversant
HEENT: Negative Jaundice
Psych: Calm and Intact Judgement/Insight
Labs
Lab Results
WBC 21.3 10^3/uL (4.8-10.8) H 10/27/23 04:50
RBC 4.29 10^6/uL (4.20-5.40) 10/27/23 04:50
Hgb 12.5 g/dL (12.0-16.0) 10/27/23 04:50
Hct 35.4 % (37.0-47.0) L 10/27/23 04:50
MCV 82.5 fL (81.0-99.0) 10/27/23 04:50
MCH 29.1 pg (27.0-31.0) 10/27/23 04:50
MCHC 35.3 g/dL (33.0-37.0) 10/27/23 04:50
RDW 15.2 % (11.5-14.5) H 10/27/23 04:50
Plt Count 352 10^3/uL (130-400) D 10/27/23 04:50
MPV 10.3 fL (7.4-10.4) 10/27/23 04:50
Abs Immat Gran (auto) 0.2 10^3/uL (0-0.05) H 10/26/23 20:30
Absolute Neuts (auto) 19.2 10^3/uL (1.4-6.5) H 10/26/23 20:30
Absolute Lymphs (auto) 0.5 10^3/uL (1.2-3.4) L 10/26/23 20:30
Absolute Monos (auto) 0.6 10^3/uL (0.1-0.6) 10/26/23 20:30
Absolute Eos (auto) 0.1 10^3/uL (0-0.7) 10/26/23 20:30
Absolute Basos (auto) 0.0 10^3/uL (0-0.2) 10/26/23 20:30
Immature Gran % 1.1 % (0-0.5) H 10/26/23 20:30
Neutrophils % 93.2 % (42.2-75.2) H 10/26/23 20:30
Lymphocytes % 2.2 % (20.5-51.1) L 10/26/23 20:30
Monocytes % 2.9 % (1.7-9.3) 10/26/23 20:30
Eosinophils % 0.6 % (0-6) 10/26/23 20:30
Basophils % 0.0 % (0-2) 10/26/23 20:30
Creatinine 1.2 mg/dL (0.6-1.0) H 10/27/23 04:50
Vital Signs
Vital Signs
Temp Pulse Resp BP Pulse Ox
99.6 F 105 18 108/70 99
10/27/23 08:06 10/27/23 10:15 10/27/23 10:15 10/27/23 10:00 10/27/23 10:15
--- NOTE | 2023-10-27 11:25 | W.PN.HOSP.TC ---
Today's Communication/Plan
-
see bold
Assessment / Plan
Assessment / Plan
Gen: NAD, AAOx3.
Eyes: EOMI, PERRLA, no scleral icterus.
Neck: supple.
CV: RRR, +S1/S2, no m/r/g.
Resp: CTAB, no rales, wheezes, or rhonchi.
Abd: +BS, soft, NT, ND
Skin: No rashes.
Neuro: CN 2-12 intact, non-focal.
Psych: Normal mood and affect.
CT A/P: ACUTE SMALL BOWEL PERFORATION within an ANTERIOR ABDOMINAL WALL HERNIA with PNEUMOPERITONEUM and SEVERE ANTERIOR ABDOMINAL WALL SOFT TISSUE EMPHYSEMA. LARGE 13.3 cm COMPLEX ABSCESS in the lower anterior abdominal wall inferior to the
hernia.� SEVERE PERITONEAL METASTATIC DISEASE (METASTATIC COLON CANCER). � Multiple hepatic metastases.� Severe chronic left hydroureteronephrosis secondary to obstructing malignancy in the left retroperitoneum.� Severe diffuse hepatic steatosis.�
Previous cholecystectomy and sigmoidectomy.
Septic shock due to incarcerated hernia/small bowel perforation/complex abscess:
-presented with abdominal pain associated with nausea and diarrhea
-CT A/P above
-History of metastatic colon cancer to the liver s/p resection
-pt underwent exploratory laparotomy on 10/27/2023 and intervention and treatment of underlying problem was not possible.
-Quoted from Dr. Howell's op note:
'1. Hernia reducible and SB contents viable
2. Frozen pelvis with firm tumor, multiple densely adherent SB loops within the pelvis and adherent to fascia, perforation of small bowel at site of metastatic disease within the fascia, wide feculent contamination within the entire soft tissue
space of the pannus and abdomen
3. < 100 cm proximal small bowel and difficult to determine exact location given prior procedures
4. No good target for enterocolonic bypass, patient goals of care against proximal ostomy
5. Intra-operative discussion with patients daughter and decision maker regarding options, decision to focus on comfort measures only and close abdomen.'
-cont IVFs/NPO/Zosyn
-cont vasopressors
MAMI:
-due to sepsis/dehydration
-with non-AG met acidosis and hyponatremia
-s/p sodium bicarb push
-cont IVFs
Other problems:
Essential HTN: holding losartan
Hyperlipidemia: holding statin pravastatin
DM2: SSI/accuchecks
h/o sigmoidectomy May 2021 for sigmoid carcinoma, s/p 6 months chemotherapy in June 2023, currently on surveillance
Chronic hydronephrosis: Left nephrostomy tube was advised in the past by urology however patient and daughter opted not to do it. Atrophy of the kidney noted on the left side (pt and daughter aware)
Asthma/COPD: Cont Singulair
h/o DVT s/p IVC filter placement followed by removal in December 2021
FULL/SCDs
Unfortunately care is futile at this time and patient's prognosis is terminal.
Hospice c/s placed by motion study engineer. Currently pt does not want comfort care.
Total critical care time spent equals 34 minutes
Anticipated Discharge: Within 24 hours
Subjective/Interval History
-
Date of Service: October 27, 2023
Patient reports her pain is improved from prior.
Objective Data
-
Labs:
Laboratory Results
10/27/23
04:50
WBC 21.3 H
Hgb 12.5
Hct 35.4 L
Plt Count 352 D
PT 19.7 H
INR 1.64
APTT 33.7
Sodium 132 L
Potassium 3.5
Chloride 100
Carbon Dioxide 19 L
BUN 39 H
Creatinine 1.2 H
Glucose 117 H
Calcium 8.3 L
Total Bilirubin 1.0
AST 146 H
ALT 106 H
Alkaline Phosphatase 184 H
Vital Signs:
Vital Signs
Temp Pulse Resp BP Pulse Ox
99.6 F 105 18 108/70 99
10/27/23 08:06 10/27/23 10:15 10/27/23 10:15 10/27/23 10:00 10/27/23 10:15
I&O
10/26/23 10/27/23 10/28/23
06:59 06:59 06:59
Intake Total 200 / 200 900 / 900
Output Total 75 / 75
Balance 200 / 200 825 / 825
--- NOTE | 2023-10-27 11:40 | W.PN.GS2 ---
Addendum entered and electronically signed by Darwin Howell MD 10/27/23 14:06:
Patient seen and examined. Agree with assessment plan as documented below.
Discussed operative findings and offered support. She denies active pain/nausea.
Gen: NAD, comfortable
Patient is a 73 yo F with known h/o stage IV colon cancer p/w perforated bowel related to diffuse metastatic disease.
Unfortunately very difficult medical and surgical situation with dismal prognosis and no surgical cure. After intraoperative discussions with her daughter (and medical decision maker), a decision was made for no heroic efforts or proximal ostomy
that would significantly impact her QOL and ability to recover in a peaceful and humane manner. Because of this, a decision was made for abdominal closure and a focus on GROCERY TEAM MEMBER/hospice. The procedure itself, as well as the operative findings and
management were discussed in detail with the patient (in the presence of her daughter). Patient is understanding. All questions answered. Prayers and condolences provided.
-- No plans or indication for surgical care
-- DNR/DNI with moves towards Hospice
Original Note:
Today's Communication / Plan
-
--
Assessment / Plan
-
POD #0 ex lap with significant metastatic findings. Frozen pelvis with firm tumor, multiple densely adherent SB loops within the pelvis and adherent to fascia, perforation of small bowel at site of metastatic disease within the fascia, wide feculent
contamination within the entire soft tissue space of the pannus and abdomen.
No good target for enterocolonic bypass or operative options for management/treatment. Leukocytosis/hypotension. On pressors, septic given feculent contamination.
Operative findings discussed with patient at bedside as well as poor prognosis.
Family and patient discussing GROCERY TEAM MEMBER/Hospice
Oncology and Critical care team following
Subjective Data
-
Date of Service: October 27, 2023
Patient seen and examined at bedside earlier this am with her daughter and insect control inspector present. Discussed operative findings and offered support. She denies active pain/nausea.
Objective Data
-
Intake and Output
10/26/23 10/27/23 10/28/23
06:59 06:59 06:59
Intake Total 200 / 200 900 / 900
Output Total 75 / 75
Balance 200 / 200 825 / 825
Intake:
IV fluids (Total) 200 / 200 800 / 800
Levophed 320 / 320
Normosol 200 / 200
Nss 1,000 ml @ 80 mls/hr IV . 480 / 480
[id number] CHRISTIANO Rx#:[id number]
IV piggybacks 100 / 100
Output:
Urine, Leija 75 / 75
Vital Signs
Temp Pulse Resp BP Pulse Ox
99.6 F 105 18 108/70 99
10/27/23 08:06 10/27/23 10:15 10/27/23 10:15 10/27/23 10:00 10/27/23 10:15
Lab Results
10/27/23 04:50
10/27/23 04:50
Calcium 8.3 mg/dl (8.4-10.2) L 10/27/23 04:50
Total Bilirubin 1.0 mg/dl (0.2-1.3) 10/27/23 04:50
Direct Bilirubin 0.8 mg/dl (0.0-0.4) H 10/27/23 04:50
AST 146 U/L (14-36) H 10/27/23 04:50
ALT 106 U/L (0-35) H 10/27/23 04:50
Alkaline Phosphatase 184 U/L (38-126) H 10/27/23 04:50
Total Protein 4.0 g/dl (6.3-8.2) L 10/27/23 04:50
Albumin 1.7 g/dl (3.5-5.0) L 10/27/23 04:50
Physical Exam
-
NAD
Comfortable
[2023-10-27 12:05] LABS: Glucose - Point of Care 136 mg/dl (70-99)
--- NOTE | 2023-10-27 12:05 | W.PN.UPDATE ---
Update Note
Progress Note Update
Spoke with family in presence of daughter. Considering patient's intraoperative findings from overnight, patient wishes to be comfortable and not continue with aggressive interventions. I mentioned hospice to the patient and she is interested in
this. I also discussed the patient's clinical status with the patient's contour sander as the patient is very involved in their hoahaoism. All questions were answered and hospice consultation placed. Gear Coding Machine Operator/pulmonary service will sign off today.
--- NOTE | 2023-10-27 12:17 | HOSPNOTE ---
Spoke with patient and daughter. I discussed hospice and the philosophy. I also addressed code status and encouraged patient to be a DNR/DNI. The patient and daughter are very tearful and need to discuss plan of care. If the patient were to stop all
medications especially blood pressure meds the patient will most likely need to be inpatient hospice/comfort. Will continue to follow. I gave patient my card and told them to call with any further question.
--- NOTE | 2023-10-27 12:56 | PTCARENOTE ---
Pt on Levophed, Vasopressin and IVF. Little to no urine output. Abdominal incision C/D/I. Reports pain with turning and repositioning. No pain at rest. PRN Ofirimiv given x1. All other assessments unchanged.
--- NOTE | 2023-10-27 15:01 | CM ---
CM following re:discharge planning.
Reviewed pt's chart, met with pt. Pt's daughter Suzanne and pt's wheelage clerk at bedside.
Pt is a 73 year old female, admitted with primary dx of Abdominal pain with known h/o stage IV colon cancer.
Pt stated she got a bed needs today and she is coping with it. Emotional support offered and provided.
Pt lives with daughter 2SH, 3 steps to enter, has 2 supportive children.
Hospice consult noted. Pt referred to hospice.
D/c plan; hospice care with hospice.
CM will follow with discharge plan updates as hospitalization progresses
--- NOTE | 2023-10-27 17:00 | PTCARENOTE ---
Abdomen appears more distended. PRN Ofirmiv given for abdominal pain. All other assessments unchanged.
[2023-10-27 17:55] LABS: Glucose - Point of Care 179 mg/dl (70-99)
[2023-10-27] MEDS: NOVOLOG FLEXPEN-LOW RESISTANCE 1 UNITS SC ×2 (18:24→23:39)
[2023-10-27] MEDS: DILAUDID 0.5 MG IV (22:10)
--- NOTE | 2023-10-27 22:21 | PTCARENOTE ---
Assumed care of patient at 1930. Patient AAOx3. NSR/ST on tele monitor. Rate in the 80-100s. +1 anasarca. +2 edema in b/l LE. Palpable pulses. POX 99% on 2L nc. Lung sounds shallow/diminished throughout. Tachypneic at times. Absent bowel sounds.
Abdomen soft/round/distended. Tender to palpation. Small smear of grace bm. Midline incision covered with abd pads; c/d/i. Voiding via ashley catheter with minimal urine output. Afebrile. Vitals stable. Levophed and Vaso for BP support. Titrating
Levophed for MAP >65. Call lizarraga within reach. Medicated with PRN IV Dilaudid for abdominal pain (see MAR).
[2023-10-27 22:27] LABS: Urine Albumin 2+ (Neg - Trace); Urine Bilirubin 1+ (Negative); Urine Character Very Cloudy (Clear); Urine Color Yellow; Urine Glucose Negative (Negative); Urine Ketone Trace (Negative); Urine Leukocyte 2+ (Negative); Urine Nitrite Negative (Negative); Urine Occult Blood 4+ (Negative); Urine Specific Gravity 1.015 (<1.030); Urine Urobilinogen Negative (Neg - 1+)
[2023-10-27 22:34] LABS: Urine Bacteria Moderate (Negative); Urine Red Blood Cell >100 /HPF (0-2); Urine White Cell >100 /HPF (0-5)
--- NOTE | 2023-10-27 23:49 | PTCARENOTE ---
Systems reviewed. No changes. Patient resting comfortably. No complaints. VSS.
[2023-10-27 23:50] LABS: Glucose - Point of Care 198 mg/dl (70-99)
[2023-10-28] VITALS (26 sets, daily range): BP systolic 65–128; BP diastolic 42–80; BMI 44.0
[2023-10-28] MEDS: ZOSYN 50 IV ×2 (03:21→10:19)
[2023-10-28] MEDS: DILAUDID 0.5 MG IV ×4 (03:33→18:24)
[2023-10-28 03:45] LABS: Hematocrit 31.7 % (37.0-47.0); Hemoglobin 11.1 g/dL (12.0-16.0); Mean Corpuscular Hgb 28.8 pg (27.0-31.0); Mean Corpuscular Volume 82.1 fL (81.0-99.0); Mean Platelet Volume 10.7 fL (7.4-10.4); Platelet Count 279 10^3/uL (130-400); Red Blood Cell Count 3.86 10^6/uL (4.20-5.40); Red Cell Dist. Width 15.9 % (11.5-14.5); White Blood Cell Count 19.5 10^3/uL (4.8-10.8)
[2023-10-28 03:50] LABS: Lactic Acid 1.7 mmol/L (0.7-2.0)
[2023-10-28 03:52] LABS: ALT (SGPT) 84 U/L (0-35); AST (SGOT) 97 U/L (14-36); Albumin 1.8 g/dl (3.5-5.0); Alkaline Phosphatase 213 U/L (38-126); Blood Urea Nitrogen 50 mg/dl (7-17); Calcium 8.1 mg/dl (8.4-10.2); Carbon Dioxide 18 mmol/L (22-30); Chloride 99 mmol/L (98-107); Estimated Creatinine Clearance 24 ml/min; Glucose 195 mg/dl (70-99); Potassium 3.6 mmol/L (3.5-5.1); Sodium 129 mmol/L (135-145); Total Bilirubin 0.8 mg/dl (0.2-1.3); Total Protein 4.1 g/dl (6.3-8.2); eGFR 23.09
--- NOTE | 2023-10-28 04:01 | PTCARENOTE ---
Assessment unchanged. Patient c/o pain at incision site; worsened with movement. PRN Dilaudid administered. VSS. Levophed gtt currently down to 8mcg/min. AM labs drawn and sent.
[2023-10-28 05:12] LABS: Absolute Neutrophils -Man Diff 16.5 10^3/uL (1.4-6.5); Band Neutrophils 10 % (0-3); Lymphocytes 8 % (20-51); Monocytes 7 % (2-9); Platelets Checked Yes; Segmented Neutrophils 75 % (42-75)
[2023-10-28 05:13] LABS: Anisocytosis 1+; Normal RBC Morphology No; Polychromasia Occasional; Toxic Granulation 1+; Vacuolated Segs 1+
[2023-10-28 05:14] LABS: Burr Cells 1+; Ovalocytes Occasional; Target Cells Occasional; Total Cells Counted 100
[2023-10-28] MEDS: NSS 1000 IV (05:26)
[2023-10-28] MEDS: NOVOLOG FLEXPEN-LOW RESISTANCE 1 UNITS SC (05:26)
[2023-10-28] MEDS: PITRESSIN 100 IV (05:30)
[2023-10-28 05:37] LABS: Glucose - Point of Care 198 mg/dl (70-99)
--- NOTE | 2023-10-28 06:54 | W.PN.ONC2 ---
Today's Communication / Plan
-
Hospice care most appropriate.
Impression
Impression
metastatic colon cancer, admitted with bowel perforation; s/p ex lap 10/26/23, not amenable to any interventions
Plan
Plan
Patient has extensive metastatic disease with bowel perforation and abscess/infection is not treatable surgically or medically. Recommended we focus on comfort measures. She is DNR/DNI. Comfort care with hospice is most appropriate. Will follow
along peripherally.
Subjective/Objective
Chief Complaint
ACS Onco F/U
Subjective
Very weak. Denies pain. DNR. Met with hospice and considering comfort measures.
Vital Signs:
Vital Signs
Temp Pulse Resp BP Pulse Ox
98.4 F 88 13 122/55 98
10/28/23 03:11 10/28/23 05:30 10/28/23 05:30 10/28/23 05:30 10/28/23 05:30
Lab Results:
Laboratory Data
WBC 19.5 10^3/uL (4.8-10.8) H 10/28/23 03:26
Hgb 11.1 g/dL (12.0-16.0) L 10/28/23 03:26
Plt Count 279 10^3/uL (130-400) D 10/28/23 03:26
PT 19.7 Sec (11.4-14.6) H 10/27/23 04:50
INR 1.64 10/27/23 04:50
APTT 33.7 Sec (23.4-35.0) 10/27/23 04:50
eGFR 23.09 10/28/23 03:26
Physical Exam
PS=4. Weak.
Cardiology: S1 and S2
[2023-10-28] MEDS: LEVOPHED 250 IV (07:06)
--- NOTE | 2023-10-28 08:15 | W.PN.INTV ---
Today's Communication / Plan
Recommendations
Transition to comfort care
Downgrade out of ICU to 2N for hospice. Liquid Sugar Melter/pulmonary service will sign off. Please call back if there are any additional questions or concerns.
Assessment
-
Assessment: 73-year-old obese female with a PMHx of metastatic sigmoid invasive adenocarcinoma (originally Dx 05/2021) s/p sigmoidectomy + partial small bowel resections (due to small bowel adhesions), umbilical hernia, COPD, history of DVT s/p
IVC-filter, hypertension, hyperlipidemia and DM type II with recent hospitalization on 10/19or due to abdominal pain from SBO, resolved with conservative management and with imaging showing worsening hepatic metastasis with plans to
follow-up with oncology as an outpatient. Patient now presents with severe abdominal pain found to be hypotensive and imaging revealed small bowel perforation within her anterior abdominal hernia. Patient emergently brought to surgery for
exploratory laparotomy which revealed fecal contamination within her abdomen, severe metastatic disease with small bowel perforation seen at the site of metastasis, and <100 cm of proximal small bowel seen with no good target for an entero-colonic
bypass. Decision made intraoperatively to focus on comfort, and the procedure ended and patient was transferred to the ICU on vasopressors for further management. Critical care services consulted for additional recommendations/management decisions.
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
chronic hydronephrosis, fatty liver, history of SBO due to colon adenocarcinoma, umbilical hernia, history of COVID-19 (October 25)
Impression:
#Small bowel perforation secondary to metastatic invasive sigmoid adenocarcinoma c/b stercoral peritonitis found intra-operatively (ex-lap OR date 10/27/2023 - no surgical intervention performed)
#Septic shock due to above (she also has abscess inferior to her known anterior abdominal wall hernia) - shock state persists
#Lactic acidosis due to shock state as above - lactate has normalized
#Acute kidney injury due to shock with hypotension and ATN - MAMI worsening
#Hyponatremia -she does have some chronic hyponatremia with baseline sodium approximately 132�134mmol/L
#Transaminitis - due to hepatic metastasis in the setting of shock
#Metastatic colon adenocarcinoma with hepatic, mesenteric and peritoneal metastasis with Hx of sigmoidectomy + partial small bowel resection
#Abdominal wall complex abscess inferior to known abdominal wall hernia
#Severe chronic left hydroureteronephrosis secondary to metastatic disease
Plan:
- Considering pt has metastatic colon cancer with Hx of partial small bowel resection and no good target for enterocolonic bypass, there is no surgical intervention available besides a proximal ostomy, which the pt is not interested in
- patient is interested in transitioning to comfort care/hospice --> hence I will DC Abx, DC labs, allow for comfort feeds, and also DC her vasopressors.
[facility] discussion on 10/27/2023: I spoke directly with the patient's sanitary inspector, as well as the patient herself and the patient's daughter. Patient is interested in transitioning to comfort care and speaking with hospice. When she first arrived to the ICU
she wanted to remain full code, however after reviewing this in detail and considering her diagnosis of metastatic colon cancer with septic shock and without surgical intervention or ability to obtain chemotherapy in her near future, her short-term
mortality is extremely high. Even if we were to continue the vasopressors and keep her n.p.o. and continue antibiotics, without surgical intervention to treat her small bowel perforation her overall prognosis is severely grim. This was discussed
with the patient in layman's terms, and she understands that she does not have long to live and she is okay with this. In light of this, if her heart were to stop or if she were to stop breathing, she does not want to have compressions done and she
does not want to be put on the ventilator. I will thus change her Code Status to DNR/DNI but continue with medical treatment otherwise while awaiting transition to hospice. Emotional support was provided to the patient and all questions were
answered.
Dispo: Downgrade out of ICU to for hospice. Emotional support was provided to the patient and her daughter. All questions were answered. Primary hospitalist, Dr. Anthony made aware.
Data:
CT Abd/Pelvis w/o IV contrast 10-26-2023:
1. � ACUTE SMALL BOWEL PERFORATION within an ANTERIOR ABDOMINAL WALL HERNIA with PNEUMOPERITONEUM and SEVERE ANTERIOR ABDOMINAL WALL SOFT TISSUE EMPHYSEMA.
2. � LARGE 13.3 cm COMPLEX ABSCESS in the lower anterior abdominal wall inferior to the hernia.
3. � SEVERE PERITONEAL METASTATIC DISEASE (METASTATIC COLON CANCER).
4. � Multiple hepatic metastases.
5. � Severe chronic left hydroureteronephrosis secondary to obstructing malignancy in the left retroperitoneum.
6. � Severe diffuse hepatic steatosis.
7. � Previous cholecystectomy and sigmoidectomy.
Subjective Dataa
Subjective Data
Date of Service:
Date of Service: October 28, 2023
Chief Complaint: Liquid Sugar Melter Follow Up
Subjective:
Patient seen today. She feels okay although still has some abdominal discomfort. She is ready to transition to hospice care. Daughter at bedside. Emotional support was provided. Pt currently remains on pressors - levophed at 4mcg/min.
Review of Systems
General: Other (12 point ROS performed and is negative unless mentioned above.)
Objective Data
Data Reviewed
Vital Signs / I&O / Oxygen:
Vital Signs
Temp Pulse Resp BP Pulse Ox
98.4 F 92 17 104/53 98
10/28/23 03:11 10/28/23 09:30 10/28/23 09:30 10/28/23 09:30 10/28/23 09:30
Intake and Output
10/27/23 10/28/23 10/29/23
06:59 06:59 06:59
Intake Total 200 / 200 3745.1 / 3852.1 401 / 401
Output Total 130 / 130 10 / 10
Balance 200 / 200 3615.1 / 3722.1 391 / 391
SaO2 98
Nasal Cannula flow liters per 1
minute
Physical Exam
General: Comfortable
HEENT: Normocephalic and Anicteric
Cardiovascular: S1-S2 and Peripheral Edema (+3 LE edema)
Respiratory: Wheeze (negative), Crackles (negative), Rhonchi (negative) and Non-Labored Respirations
GI: Soft, Tender (Diffusely) and Other (hypoactive BS)
Neurology: Awake and Alert
Skin: Warm and Dry
Labs/Micro/Reports
Lab Data
10/28/23 03:26
10/28/23 03:26
Microbiology
10/26/23 20:30 Blood/Venous Blood Culture - Preliminary
Positive culture in progress
10/26/23 20:30 Blood/Venous Gram Stain - Preliminary
10/27/23 00:26 Abdomen Anaerobic Culture - Preliminary
Culture pending. Anaerobic cultures are examined after 3
days incubation. Additional information to follow.
10/27/23 00:26 Abdomen Wound Culture - Preliminary
Gram negative bacilli
10/27/23 00:26 Abdomen Gram Stain - Preliminary
10/26/23 20:30 Blood/Venous Blood Culture - Preliminary
No Growth in 24 hours- Final report to follow
--- NOTE | 2023-10-28 08:28 | W.PN.GS2 ---
Today's Communication / Plan
-
Hospice discussions today
Assessment / Plan
-
POD #1 ex lap with significant metastatic findings. Frozen pelvis with firm tumor, multiple densely adherent SB loops within the pelvis and adherent to fascia, perforation of small bowel at site of metastatic disease within the fascia, wide feculent
contamination within the entire soft tissue space of the pannus and abdomen.
No good target for enterocolonic bypass or operative options for management/treatment. Leukocytosis/hypotension. On pressors, septic given feculent contamination.
Operative findings discussed with patient at bedside as well as poor prognosis.
Family and patient discussing UX ENGINEER/Hospice, further discussions today
Subjective Data
-
Date of Service: October 28, 2023
C/o 7/10 abd pain this am, denies n/v, no other complaints
Objective Data
-
Intake and Output
10/27/23 10/28/23 10/29/23
06:59 06:59 06:59
Intake Total 200 / 200 3745.1 / 3745.1
Output Total 130 / 130
Balance 200 / 200 3615.1 / 3615.1
Intake:
IV fluids (Total) 200 / 200 3395.1 / 3395.1
Levophed 1340.1 / 1340.1
Normosol 200 / 200
Nss 1,000 ml @ 80 mls/hr IV . 1919
[id number] CHRISTIANO Rx#:[id number]
vasopressin 135 / 135
IV piggybacks 350 / 350
Output:
Urine, Leija 130 / 130
Vital Signs
Temp Pulse Resp BP Pulse Ox
98.4 F 88 13 122/55 98
10/28/23 03:11 10/28/23 05:30 10/28/23 05:30 10/28/23 05:30 10/28/23 05:30
Lab Results
10/28/23 03:26
10/28/23 03:26
Calcium 8.1 mg/dl (8.4-10.2) L 10/28/23 03:26
Phosphorus 5.0 mg/dl (2.5-4.5) H 10/28/23 03:26
Magnesium 2.0 mg/dl (1.6-2.3) 10/28/23 03:26
Total Bilirubin 0.8 mg/dl (0.2-1.3) 10/28/23 03:26
Direct Bilirubin 0.8 mg/dl (0.0-0.4) H 10/27/23 04:50
AST 97 U/L (14-36) H 10/28/23 03:26
ALT 84 U/L (0-35) H 10/28/23 03:26
Alkaline Phosphatase 213 U/L (38-126) H 10/28/23 03:26
Total Protein 4.1 g/dl (6.3-8.2) L 10/28/23 03:26
Albumin 1.8 g/dl (3.5-5.0) L 10/28/23 03:26
Physical Exam
-
Gen: NAD
Abd: soft, diffuse ttp, midline dressing cdi
[2023-10-28] MEDS: OFIRMEV 100 IV ×2 (08:34→17:57)
--- NOTE | 2023-10-28 09:36 | W.PN.HOSP.TC ---
Addendum entered and electronically signed by Meek Anthony MD 10/28/23 11:56:
Very mild shock liver
Original Note:
Today's Communication/Plan
-
see bold
Assessment / Plan
Assessment / Plan
Gen: NAD, AAOx3.
Eyes: EOMI, PERRLA, no scleral icterus.
Neck: supple.
CV: remains RRR, +S1/S2, no m/r/g.
Resp: remains CTAB, no rales, wheezes, or rhonchi.
Abd: +BS, soft, NT, ND
Skin: No rashes.
Neuro: remains CN 2-12 intact, non-focal.
Psych: Normal mood and affect.
10/26/23 20:30 Blood/Venous Blood Culture - Preliminary
Positive culture in progress
10/26/23 20:30 Blood/Venous Gram Stain - Preliminary
10/27/23 00:26 Abdomen Anaerobic Culture - Preliminary
Culture pending. Anaerobic cultures are examined after 3
days incubation. Additional information to follow.
10/27/23 00:26 Abdomen Wound Culture - Preliminary
Gram negative bacilli
10/27/23 00:26 Abdomen Gram Stain - Preliminary
10/26/23 20:30 Blood/Venous Blood Culture - Preliminary
No Growth in 24 hours- Final report to follow
CT A/P: ACUTE SMALL BOWEL PERFORATION within an ANTERIOR ABDOMINAL WALL HERNIA with PNEUMOPERITONEUM and SEVERE ANTERIOR ABDOMINAL WALL SOFT TISSUE EMPHYSEMA. LARGE 13.3 cm COMPLEX ABSCESS in the lower anterior abdominal wall inferior to the
hernia.� SEVERE PERITONEAL METASTATIC DISEASE (METASTATIC COLON CANCER). � Multiple hepatic metastases.� Severe chronic left hydroureteronephrosis secondary to obstructing malignancy in the left retroperitoneum.� Severe diffuse hepatic steatosis.�
Previous cholecystectomy and sigmoidectomy.
Septic shock due to incarcerated hernia/small bowel perforation/complex abscess:
-presented with abdominal pain associated with nausea and diarrhea
-CT A/P above
-History of metastatic colon cancer to the liver s/p resection
-pt underwent exploratory laparotomy on 10/27/2023 and intervention and treatment of underlying problem was not possible.
-Quoted from Dr. Howell's op note:
'1. Hernia reducible and SB contents viable
2. Frozen pelvis with firm tumor, multiple densely adherent SB loops within the pelvis and adherent to fascia, perforation of small bowel at site of metastatic disease within the fascia, wide feculent contamination within the entire soft tissue
space of the pannus and abdomen
3. < 100 cm proximal small bowel and difficult to determine exact location given prior procedures
4. No good target for enterocolonic bypass, patient goals of care against proximal ostomy
5. Intra-operative discussion with patients daughter and decision maker regarding options, decision to focus on comfort measures only and close abdomen.'
-cont IVFs/NPO/Zosyn
-cont vasopressors
MAMI:
-due to sepsis/dehydration
-with non-AG met acidosis and hyponatremia
-s/p sodium bicarb push
-Cr worsening
-cont IVFs for now pending hospice discussions
Other problems:
Essential HTN: holding losartan
Hyperlipidemia: holding statin pravastatin
DM2: SSI/accuchecks
h/o sigmoidectomy May 2021 for sigmoid carcinoma, s/p 6 months chemotherapy in June 2023, currently on surveillance
Chronic hydronephrosis: Left nephrostomy tube was advised in the past by urology however patient and daughter opted not to do it. Atrophy of the kidney noted on the left side (pt and daughter aware)
Asthma/COPD: Cont Singulair
h/o DVT s/p IVC filter placement followed by removal in December 2021
FULL/SCDs
Unfortunately care is futile at this time and patient's prognosis is terminal (multiorgan system failure due to septic shock due to incarcerated hernia/small bowel perforation/complex abscess).
Hospice discussions
Total critical care time spent equals 34 minutes
Anticipated Discharge: 24 - 48 hours
Subjective/Interval History
-
Date of Service: October 28, 2023
Pt reports back pain.
Objective Data
-
Labs:
Laboratory Results
10/28/23
03:26
WBC 19.5 H
Hgb 11.1 L
Hct 31.7 L
Plt Count 279 D
Sodium 129 L
Potassium 3.6
Chloride 99
Carbon Dioxide 18 L
BUN 50 H
Creatinine 2.2 H
Glucose 195 H
Calcium 8.1 L
Total Bilirubin 0.8
AST 97 H
ALT 84 H
Alkaline Phosphatase 213 H
Vital Signs:
Vital Signs
Temp Pulse Resp BP Pulse Ox
98.4 F 92 17 104/53 98
10/28/23 03:11 10/28/23 09:30 10/28/23 09:30 10/28/23 09:30 10/28/23 09:30
I&O
10/27/23 10/28/23 10/29/23
06:59 06:59 06:59
Intake Total 200 / 200 3745.1 / 3852.1 306 / 306
Output Total 130 / 130 10 / 10
Balance 200 / 200 3615.1 / 3722.1 296 / 296
--- NOTE | 2023-10-28 09:53 | PN.CDI ---
CDI
- -
CDI:
Physician Documentation Request
Admit Date: 10/26/23 22:11
Dear Doctor Gabrielle,
Patient is admitted with sepsis/septic shock due to incarcerated hernia/small bowel perforation.
Print Manager notes states 'Transaminitis - due to hepatic metastasis in the setting of shock'
10/26/23 10/27/23
20:50 04:50
PT 19.7 H
AST 176 H
ALT 126 H
10/27/23 10/28/23
04:50 03:26
AST 146 H 97 H
ALT 106 H 84 H
Based on the above, could you please further clarify the diagnosis related to the above lab abnormalities.
Acute liver failure
Shock liver
Transaminitis only
Other
Use of terms such as suspected, likely, concern for, or probable (associated with a specific diagnosis that is being evaluated, monitored, or treated as if it exists) are acceptable and can be coded in the inpatient setting, when documented at the
time of discharge.
Thank you,
Stefanie Daley RN, BSN
CDI Specialist
tiger text
Please use your independent medical judgment in providing your response.
--- NOTE | 2023-10-28 11:06 | CM ---
CM following re: discharge planning.
Discussed in rounds, reviewed pt's chart, met with pt and pt's daughter at bedside.
Pt brought to me her concerns regarding whether or not hospice care is covered by her insurance.CM explained to the pt Medicare benefits for hospice care, pt expressed her understanding and she stated she feels much better now knowing that hospice
care covered by her insurance. Pt stated she is ready for inpatient hospice. Pt went to tears stating she is very upset after getting bed news yesterday. Emotional support offered and provided to pt and her daughter.
CM spoke to naval gunfire liaison officer Regi and she will assess the pt for inpatient level of hospice care/GIP eligibility.
D/C plan: comfort care/hospice care with GIP.
CM will follow with discharge plan updates as hospitalization progresses
--- NOTE | 2023-10-28 11:13 | W.PN.UPDATE ---
Update Note
Progress Note Update
Spoke with patient alongside hospice nurse. Yesterday patient 1 more time to think about hospice in general and was not ready to transition to comfort care yesterday. She now has started over, is okay with us stopping antibiotics and transitioning
to comfort care/hospice management. All questions were answered, emotional support was provided, and transfer orders will be placed. Primary hospitalist made aware.
--- NOTE | 2023-10-28 11:29 | HOSPNOTE ---
Spoke to patient and her daughter at beside. Patient is ready for comfort measures and comfort care. Reviewed comfort care vs inpatient hospice and being one of the same. Patient currently does not have unmanageable symptoms to meet GIP criteria
today. After discussing, patient will transition to comfort care measures today and will be assessed daily for GIP eligibility. CM, Attending, and primary nurse notified. Bed request placed for 2 north.
--- NOTE | 2023-10-28 12:47 | PTOTSP ---
Chart reviewed and spoke with RN. Patient has transitioned to comfort measures and is not appropriate for skilled therapy at this time. Will discharge at this time. If needs change, please re-consult.
--- NOTE | 2023-10-28 18:20 | PTCARENOTE ---
Pt alert and oriented. Alternating Ofirmiv and Dilaudid for pain control. Ate half a water ice and a couple bites of pudding today. Denies nausea. Daughter at bedside. Report given to floor.
[2023-10-29] MEDS: DILAUDID 0.5 MG IV ×4 (01:52→18:38)
[2023-10-29] MEDS: ATIVAN 0.5 MG IV (06:07)
[2023-10-29 07:54] VITALS: BP 113/59
--- NOTE | 2023-10-29 11:07 | W.PN.HOSP.TC ---
Today's Communication/Plan
-
see bold
Assessment / Plan
Assessment / Plan
Gen: NAD, Awake and alert
Eyes: EOMI, PERRLA, no scleral icterus.
Neck: supple.
CV: continues to remain RRR, +S1/S2, no m/r/g.
Resp: continues to remain CTAB, no rales, wheezes, or rhonchi.
Abd: absent BS, soft, NT to light palpation, ND
Skin: No rashes.
Neuro: CN 2-12 intact, non-focal.
Psych: Normal mood and affect.
Pt now comfort care. InStaff message sent to Suzanne Montenegro to discuss inpt hospice vs home hospice. Cont dilaudid/Ativan PRN.
Documentation from 10/28/23:
CT A/P: ACUTE SMALL BOWEL PERFORATION within an ANTERIOR ABDOMINAL WALL HERNIA with PNEUMOPERITONEUM and SEVERE ANTERIOR ABDOMINAL WALL SOFT TISSUE EMPHYSEMA. LARGE 13.3 cm COMPLEX ABSCESS in the lower anterior abdominal wall inferior to the
hernia.� SEVERE PERITONEAL METASTATIC DISEASE (METASTATIC COLON CANCER). � Multiple hepatic metastases.� Severe chronic left hydroureteronephrosis secondary to obstructing malignancy in the left retroperitoneum.� Severe diffuse hepatic steatosis.�
Previous cholecystectomy and sigmoidectomy.
Septic shock due to incarcerated hernia/small bowel perforation/complex abscess:
-presented with abdominal pain associated with nausea and diarrhea
-CT A/P above
-History of metastatic colon cancer to the liver s/p resection
-pt underwent exploratory laparotomy on 10/27/2023 and intervention and treatment of underlying problem was not possible.
-Quoted from Dr. Howell's op note:
'1. Hernia reducible and SB contents viable
2. Frozen pelvis with firm tumor, multiple densely adherent SB loops within the pelvis and adherent to fascia, perforation of small bowel at site of metastatic disease within the fascia, wide feculent contamination within the entire soft tissue
space of the pannus and abdomen
3. < 100 cm proximal small bowel and difficult to determine exact location given prior procedures
4. No good target for enterocolonic bypass, patient goals of care against proximal ostomy
5. Intra-operative discussion with patients daughter and decision maker regarding options, decision to focus on comfort measures only and close abdomen.'
-cont IVFs/NPO/Zosyn
-cont vasopressors
MAMI:
-due to sepsis/dehydration
-with non-AG met acidosis and hyponatremia
-s/p sodium bicarb push
-Cr worsening
-cont IVFs for now pending hospice discussions
Other problems:
Essential HTN: holding losartan
Hyperlipidemia: holding statin pravastatin
DM2: SSI/accuchecks
h/o sigmoidectomy May 2021 for sigmoid carcinoma, s/p 6 months chemotherapy in June 2023, currently on surveillance
Chronic hydronephrosis: Left nephrostomy tube was advised in the past by urology however patient and daughter opted not to do it. Atrophy of the kidney noted on the left side (pt and daughter aware)
Asthma/COPD: Cont Singulair
h/o DVT s/p IVC filter placement followed by removal in December 2021
Anticipated Discharge: Today
Subjective/Interval History
-
Date of Service: October 29, 2023
Pt reports mild abdominal pain.
Objective Data
-
Vital Signs:
Vital Signs
Temp Pulse Resp BP Pulse Ox
97.9 F 82 16 113/59 98
10/29/23 07:54 10/29/23 07:54 10/29/23 07:54 10/29/23 07:54 10/29/23 07:54
I&O
10/28/23 10/29/23 10/30/23
06:59 06:59 06:59
Intake Total 3745.1 / 3852.1 1311 / 1311
Output Total 130 / 130 10 / 10
Balance 3615.1 / 3722.1 1301 / 1301
--- NOTE | 2023-10-29 12:35 | HOSPNOTE ---
Will continue to follow patient. Spoke with patient and daughter and patient has been given one dose of pain medications and states she is comfortable at this time. We will evaluate daily.
--- NOTE | 2023-10-29 14:29 | CM ---
Met with patient and daughter. Patient is now on inpatient hospice service. CM will remain available if family or hospice requires assistance.
[2023-10-29 19:33] VITALS: BP 116/55
--- NOTE | 2023-10-29 21:22 | PTCARENOTE ---
Patient didn't have any urine in cath bag. Informed Nurse.
[2023-10-30] MEDS: DILAUDID 0.5 MG IV ×4 (01:19→17:22)
[2023-10-30 07:07] VITALS: BP 119/64
--- NOTE | 2023-10-30 09:41 | W.PN.HOSP.TC ---
Today's Communication/Plan
-
see bold
Assessment / Plan
Assessment / Plan
Gen: NAD, Awake and alert but drowsy
CV: RRR, +S1/S2, no m/r/g.
Resp: CTAB anteriorly, no rales, wheezes, or rhonchi.
Neuro: CN 2-12 intact, non-focal.
Psych: calm
Pt now comfort care. Cont dilaudid/Ativan PRN. Hospice following.
Documentation from 10/28/23:
CT A/P: ACUTE SMALL BOWEL PERFORATION within an ANTERIOR ABDOMINAL WALL HERNIA with PNEUMOPERITONEUM and SEVERE ANTERIOR ABDOMINAL WALL SOFT TISSUE EMPHYSEMA. LARGE 13.3 cm COMPLEX ABSCESS in the lower anterior abdominal wall inferior to the
hernia.� SEVERE PERITONEAL METASTATIC DISEASE (METASTATIC COLON CANCER). � Multiple hepatic metastases.� Severe chronic left hydroureteronephrosis secondary to obstructing malignancy in the left retroperitoneum.� Severe diffuse hepatic steatosis.�
Previous cholecystectomy and sigmoidectomy.
Septic shock due to incarcerated hernia/small bowel perforation/complex abscess:
-presented with abdominal pain associated with nausea and diarrhea
-CT A/P above
-History of metastatic colon cancer to the liver s/p resection
-pt underwent exploratory laparotomy on 10/27/2023 and intervention and treatment of underlying problem was not possible.
-Quoted from Dr. Howell's op note:
'1. Hernia reducible and SB contents viable
2. Frozen pelvis with firm tumor, multiple densely adherent SB loops within the pelvis and adherent to fascia, perforation of small bowel at site of metastatic disease within the fascia, wide feculent contamination within the entire soft tissue
space of the pannus and abdomen
3. < 100 cm proximal small bowel and difficult to determine exact location given prior procedures
4. No good target for enterocolonic bypass, patient goals of care against proximal ostomy
5. Intra-operative discussion with patients daughter and decision maker regarding options, decision to focus on comfort measures only and close abdomen.'
-cont IVFs/NPO/Zosyn
-cont vasopressors
MAMI:
-due to sepsis/dehydration
-with non-AG met acidosis and hyponatremia
-s/p sodium bicarb push
-Cr worsening
-cont IVFs for now pending hospice discussions
Other problems:
Essential HTN: holding losartan
Hyperlipidemia: holding statin pravastatin
DM2: SSI/accuchecks
h/o sigmoidectomy May 2021 for sigmoid carcinoma, s/p 6 months chemotherapy in June 2023, currently on surveillance
Chronic hydronephrosis: Left nephrostomy tube was advised in the past by urology however patient and daughter opted not to do it. Atrophy of the kidney noted on the left side (pt and daughter aware)
Asthma/COPD: Cont Singulair
h/o DVT s/p IVC filter placement followed by removal in December 2021
Anticipated Discharge: 24 - 48 hours
Subjective/Interval History
-
Date of Service: October 30, 2023
When asked how she's feeling the pt nods her head.
Objective Data
-
Vital Signs:
Vital Signs
Temp Pulse Resp BP Pulse Ox
97.4 F 84 16 119/64 98
10/30/23 07:07 10/30/23 07:07 10/30/23 07:07 10/30/23 07:07 10/30/23 07:07
I&O
10/29/23 10/30/23 10/31/23
06:59 06:59 06:59
Intake Total 1311 / 1311 1200 / 1200
Output Total 70 / 70
Balance 1301 / 1301 1130 / 1130
--- NOTE | 2023-10-30 14:08 | HOSPNOTE ---
Patient appears very comfortable at this time. Daughter is at bedside and the patient is showing no signs of distress or pain. Spoke with floor RN and asked to medicate patient prior to any care. Will continue to follow.
--- NOTE | 2023-10-30 16:40 | CM ---
Inpatient hospice managing care. Visited patient and daughter. No needs from this CM.
[2023-10-30 23:15] VITALS: BP 131/57
[2023-10-31] MEDS: DILAUDID 0.5 MG IV ×4 (00:23→20:44)
[2023-10-31 07:23] VITALS: BP 94/49
--- NOTE | 2023-10-31 08:08 | W.PN.HOSP.TC ---
Today's Communication/Plan
-
see bold
Assessment / Plan
Assessment / Plan
Gen: remains NAD, Awake and alert but drowsy
CV: remains RRR, +S1/S2, no m/r/g.
Resp: remains CTAB anteriorly, no rales, wheezes, or rhonchi.
Neuro: CN 2-12 intact, non-focal.
Psych: calm
Pt now comfort care. Cont dilaudid/Ativan PRN. Hospice following.
Documentation from 10/28/23:
CT A/P: ACUTE SMALL BOWEL PERFORATION within an ANTERIOR ABDOMINAL WALL HERNIA with PNEUMOPERITONEUM and SEVERE ANTERIOR ABDOMINAL WALL SOFT TISSUE EMPHYSEMA. LARGE 13.3 cm COMPLEX ABSCESS in the lower anterior abdominal wall inferior to the
hernia.� SEVERE PERITONEAL METASTATIC DISEASE (METASTATIC COLON CANCER). � Multiple hepatic metastases.� Severe chronic left hydroureteronephrosis secondary to obstructing malignancy in the left retroperitoneum.� Severe diffuse hepatic steatosis.�
Previous cholecystectomy and sigmoidectomy.
Septic shock due to incarcerated hernia/small bowel perforation/complex abscess:
-presented with abdominal pain associated with nausea and diarrhea
-CT A/P above
-History of metastatic colon cancer to the liver s/p resection
-pt underwent exploratory laparotomy on 10/27/2023 and intervention and treatment of underlying problem was not possible.
-Quoted from Dr. Howell's op note:
'1. Hernia reducible and SB contents viable
2. Frozen pelvis with firm tumor, multiple densely adherent SB loops within the pelvis and adherent to fascia, perforation of small bowel at site of metastatic disease within the fascia, wide feculent contamination within the entire soft tissue
space of the pannus and abdomen
3. < 100 cm proximal small bowel and difficult to determine exact location given prior procedures
4. No good target for enterocolonic bypass, patient goals of care against proximal ostomy
5. Intra-operative discussion with patients daughter and decision maker regarding options, decision to focus on comfort measures only and close abdomen.'
-cont IVFs/NPO/Zosyn
-cont vasopressors
MAMI:
-due to sepsis/dehydration
-with non-AG met acidosis and hyponatremia
-s/p sodium bicarb push
-Cr worsening
-cont IVFs for now pending hospice discussions
Other problems:
Essential HTN: holding losartan
Hyperlipidemia: holding statin pravastatin
DM2: SSI/accuchecks
h/o sigmoidectomy May 2021 for sigmoid carcinoma, s/p 6 months chemotherapy in June 2023, currently on surveillance
Chronic hydronephrosis: Left nephrostomy tube was advised in the past by urology however patient and daughter opted not to do it. Atrophy of the kidney noted on the left side (pt and daughter aware)
Asthma/COPD: Cont Singulair
h/o DVT s/p IVC filter placement followed by removal in December 2021
Anticipated Discharge: Within 24 hours
Subjective/Interval History
-
Date of Service: October 31, 2023
Pt without new complaints.
Objective Data
-
Vital Signs:
Vital Signs
Temp Pulse Resp BP Pulse Ox
97.9 F 93 12 94/49 96
10/31/23 07:23 10/31/23 07:23 10/31/23 07:23 10/31/23 07:23 10/31/23 07:23
I&O
10/30/23 10/31/23 11/01/23
06:59 06:59 06:59
Intake Total 1200 / 1200 600 / 600
Output Total 70 / 70 200 / 200
Balance 1130 / 1130 400 / 400
[2023-10-31] MEDS: FLUSH (NSS) 2 FLUSH IV (14:26)
[2023-10-31 19:47] VITALS: BP 116/57
[2023-11-01] MEDS: DILAUDID 0.5 MG IV ×3 (05:51→20:27)
[2023-11-01 07:15] VITALS: BP 105/44
--- NOTE | 2023-11-01 10:50 | W.PN.HOSP.TC ---
Today's Communication/Plan
-
see bold
Assessment / Plan
Assessment / Plan
Gen: NAD, Awake and alert, NCAT
CV: continues to remain RRR, +S1/S2, no m/r/g.
Resp: continues to remain CTAB anteriorly, no rales, wheezes, or rhonchi.
Neuro: CN 2-12 intact, non-focal.
Psych: calm
Pt now comfort care. Cont dilaudid/Ativan PRN. Hospice following.
Documentation from 10/28/23:
CT A/P: ACUTE SMALL BOWEL PERFORATION within an ANTERIOR ABDOMINAL WALL HERNIA with PNEUMOPERITONEUM and SEVERE ANTERIOR ABDOMINAL WALL SOFT TISSUE EMPHYSEMA. LARGE 13.3 cm COMPLEX ABSCESS in the lower anterior abdominal wall inferior to the
hernia.� SEVERE PERITONEAL METASTATIC DISEASE (METASTATIC COLON CANCER). � Multiple hepatic metastases.� Severe chronic left hydroureteronephrosis secondary to obstructing malignancy in the left retroperitoneum.� Severe diffuse hepatic steatosis.�
Previous cholecystectomy and sigmoidectomy.
Septic shock due to incarcerated hernia/small bowel perforation/complex abscess:
-presented with abdominal pain associated with nausea and diarrhea
-CT A/P above
-History of metastatic colon cancer to the liver s/p resection
-pt underwent exploratory laparotomy on 10/27/2023 and intervention and treatment of underlying problem was not possible.
-Quoted from Dr. Howell's op note:
'1. Hernia reducible and SB contents viable
2. Frozen pelvis with firm tumor, multiple densely adherent SB loops within the pelvis and adherent to fascia, perforation of small bowel at site of metastatic disease within the fascia, wide feculent contamination within the entire soft tissue
space of the pannus and abdomen
3. < 100 cm proximal small bowel and difficult to determine exact location given prior procedures
4. No good target for enterocolonic bypass, patient goals of care against proximal ostomy
5. Intra-operative discussion with patients daughter and decision maker regarding options, decision to focus on comfort measures only and close abdomen.'
-cont IVFs/NPO/Zosyn
-cont vasopressors
MAMI:
-due to sepsis/dehydration
-with non-AG met acidosis and hyponatremia
-s/p sodium bicarb push
-Cr worsening
-cont IVFs for now pending hospice discussions
Other problems:
Essential HTN: holding losartan
Hyperlipidemia: holding statin pravastatin
DM2: SSI/accuchecks
h/o sigmoidectomy May 2021 for sigmoid carcinoma, s/p 6 months chemotherapy in June 2023, currently on surveillance
Chronic hydronephrosis: Left nephrostomy tube was advised in the past by urology however patient and daughter opted not to do it. Atrophy of the kidney noted on the left side (pt and daughter aware)
Asthma/COPD: Cont Singulair
h/o DVT s/p IVC filter placement followed by removal in December 2021
Anticipated Discharge: 24 - 48 hours
Subjective/Interval History
-
Date of Service: November 01, 2023
Pt denies abd pain.
Objective Data
-
Vital Signs:
Vital Signs
Temp Pulse Resp BP Pulse Ox
97.8 F 85 16 105/44 96
11/01/23 07:15 11/01/23 07:15 11/01/23 07:15 11/01/23 07:15 11/01/23 08:30
I&O
10/31/23 11/01/23 11/02/23
06:59 06:59 06:59
Intake Total 600 / 600 120 / 120
Output Total 200 / 200 200 / 200
Balance 400 / 400 -80 / -80
[2023-11-01] MEDS: FLUSH (NSS) 2 FLUSH IV (14:35)
[2023-11-01 19:49] VITALS: BP 135/60
[2023-11-01 23:21] VITALS: BP 122/63
[2023-11-02] MEDS: DILAUDID 0.5 MG IV ×4 (04:05→20:08)
[2023-11-02 07:05] VITALS: BP 127/68
--- NOTE | 2023-11-02 11:35 | W.PN.HOSP.TC ---
Today's Communication/Plan
-
Monitor vital signs and see plan
Continue with Dilaudid, Ativan
Assessment / Plan
Assessment / Plan
Gen: NAD, Awake and alert, NCAT
CV: continues to remain RRR, +S1/S2, no m/r/g.
Resp: continues to remain CTAB anteriorly, no rales, wheezes, or rhonchi.
Neuro: CN 2-12 intact, non-focal.
Psych: calm
Pt now comfort care. Cont dilaudid/Ativan PRN. Hospice following.
CT A/P: ACUTE SMALL BOWEL PERFORATION within an ANTERIOR ABDOMINAL WALL HERNIA with PNEUMOPERITONEUM and SEVERE ANTERIOR ABDOMINAL WALL SOFT TISSUE EMPHYSEMA. LARGE 13.3 cm COMPLEX ABSCESS in the lower anterior abdominal wall inferior to the
hernia.� SEVERE PERITONEAL METASTATIC DISEASE (METASTATIC COLON CANCER). � Multiple hepatic metastases.� Severe chronic left hydroureteronephrosis secondary to obstructing malignancy in the left retroperitoneum.� Severe diffuse hepatic steatosis.�
Previous cholecystectomy and sigmoidectomy.
Septic shock due to incarcerated hernia/small bowel perforation/complex abscess:
-presented with abdominal pain associated with nausea and diarrhea
-CT A/P above
-History of metastatic colon cancer to the liver s/p resection
-pt underwent exploratory laparotomy on 10/27/2023 and intervention and treatment of underlying problem was not possible.
-Quoted from Dr. Howell's op note:
'1. Hernia reducible and SB contents viable
2. Frozen pelvis with firm tumor, multiple densely adherent SB loops within the pelvis and adherent to fascia, perforation of small bowel at site of metastatic disease within the fascia, wide feculent contamination within the entire soft tissue
space of the pannus and abdomen
3. < 100 cm proximal small bowel and difficult to determine exact location given prior procedures
4. No good target for enterocolonic bypass, patient goals of care against proximal ostomy
5. Intra-operative discussion with patients daughter and decision maker regarding options, decision to focus on comfort measures only and close abdomen.'
comnfort feeds
Pt now comfort care. Cont dilaudid/Ativan PRN. Hospice following.
MAMI:
-due to sepsis/dehydration
-with non-AG met acidosis and hyponatremia
Other problems:
Essential HTN: holding losartan
Hyperlipidemia: holding statin pravastatin
DM2: SSI/accuchecks
h/o sigmoidectomy May 2021 for sigmoid carcinoma, s/p 6 months chemotherapy in June 2023, currently on surveillance
Chronic hydronephrosis: Left nephrostomy tube was advised in the past by urology however patient and daughter opted not to do it. Atrophy of the kidney noted on the left side (pt and daughter aware)
Asthma/COPD: Cont Singulair
h/o DVT s/p IVC filter placement followed by removal in December 2021
Anticipated Discharge: 24 - 48 hours
Subjective/Interval History
-
Date of Service: November 02, 2023
comfortable
Objective Data
-
Vital Signs:
Vital Signs
Temp Pulse Resp BP Pulse Ox
96.7 F L 76 12 127/68 97
11/02/23 07:05 11/02/23 07:05 11/02/23 07:05 11/02/23 07:05 11/02/23 07:05
I&O
11/01/23 11/02/23 11/03/23
06:59 06:59 06:59
Intake Total 120 / 120 50 / 50
Output Total 200 / 200 350 / 350
Balance -80 / -80 -300 / -300
--- NOTE | 2023-11-02 14:22 | HOSPNOTE ---
Assessed patient and she appears comfortable but weak and lethargic. I will assess patient daily. For now patient remains on comfort care.
--- NOTE | 2023-11-02 16:24 | CM ---
Patient on comfort care measures. Hospice nurse is following. This CM spoke with daughter and offered support. No CM needs at this time.
[2023-11-02 23:46] VITALS: BP 135/69
[2023-11-03] MEDS: DILAUDID 0.5 MG IV ×4 (02:54→21:06)
[2023-11-03 07:45] VITALS: BP 140/55
--- NOTE | 2023-11-03 12:34 | W.PN.HOSP.TC ---
Today's Communication/Plan
-
monitor vitals
see plan
hospice care consultant following
updated daughter at bedside
cw dilaudid
Assessment / Plan
Assessment / Plan
Gen: NAD, Awake and alert, NCAT
CV: continues to remain RRR, +S1/S2, no m/r/g.
Resp: continues to remain CTAB anteriorly, no rales, wheezes, or rhonchi.
Neuro: CN 2-12 intact, non-focal.
Psych: calm
Pt now comfort care. Cont dilaudid/Ativan PRN. Hospice following.
CT A/P: ACUTE SMALL BOWEL PERFORATION within an ANTERIOR ABDOMINAL WALL HERNIA with PNEUMOPERITONEUM and SEVERE ANTERIOR ABDOMINAL WALL SOFT TISSUE EMPHYSEMA. LARGE 13.3 cm COMPLEX ABSCESS in the lower anterior abdominal wall inferior to the
hernia.� SEVERE PERITONEAL METASTATIC DISEASE (METASTATIC COLON CANCER). � Multiple hepatic metastases.� Severe chronic left hydroureteronephrosis secondary to obstructing malignancy in the left retroperitoneum.� Severe diffuse hepatic steatosis.�
Previous cholecystectomy and sigmoidectomy.
Septic shock due to incarcerated hernia/small bowel perforation/complex abscess:
-presented with abdominal pain associated with nausea and diarrhea
-CT A/P above
-History of metastatic colon cancer to the liver s/p resection
-pt underwent exploratory laparotomy on 10/27/2023 and intervention and treatment of underlying problem was not possible.
-Quoted from Dr. Howell's op note:
'1. Hernia reducible and SB contents viable
2. Frozen pelvis with firm tumor, multiple densely adherent SB loops within the pelvis and adherent to fascia, perforation of small bowel at site of metastatic disease within the fascia, wide feculent contamination within the entire soft tissue
space of the pannus and abdomen
3. < 100 cm proximal small bowel and difficult to determine exact location given prior procedures
4. No good target for enterocolonic bypass, patient goals of care against proximal ostomy
5. Intra-operative discussion with patients daughter and decision maker regarding options, decision to focus on comfort measures only and close abdomen.'
comnfort feeds
Pt now comfort care. Cont dilaudid/Ativan PRN. Hospice following.
slowly declining
MAMI:
-due to sepsis/dehydration
-with non-AG met acidosis and hyponatremia
Other problems:
Essential HTN: holding losartan
Hyperlipidemia: holding statin pravastatin
DM2: SSI/accuchecks
h/o sigmoidectomy May 2021 for sigmoid carcinoma, s/p 6 months chemotherapy in June 2023, currently on surveillance
Chronic hydronephrosis: Left nephrostomy tube was advised in the past by urology however patient and daughter opted not to do it. Atrophy of the kidney noted on the left side (pt and daughter aware)
Asthma/COPD: Cont Singulair
h/o DVT s/p IVC filter placement followed by removal in December 2021
Anticipated Discharge: 24 - 48 hours
Subjective/Interval History
-
Date of Service: November 03, 2023
no pain
Objective Data
-
Vital Signs:
Vital Signs
Temp Pulse Resp BP Pulse Ox
97.6 F 80 12 140/55 98
11/03/23 07:45 11/03/23 07:45 11/03/23 07:45 11/03/23 07:45 11/03/23 07:45
I&O
11/02/23 11/03/23 11/04/23
06:59 06:59 06:59
Intake Total 50 / 50 300 / 300
Output Total 350 / 350 250 / 250
Balance -300 / -300 50 / 50
[2023-11-03 23:41] VITALS: BP 118/57
[2023-11-04] MEDS: DILAUDID 0.5 MG IV ×3 (04:18→21:49)
[2023-11-04 08:37] VITALS: BP 133/65
--- NOTE | 2023-11-04 11:25 | W.PN.HOSP.TC ---
Today's Communication/Plan
-
monitor vitals
see plan
start roxanol and see if she tolerates; if tolerated then likely need placement or home for hospice
Assessment / Plan
Assessment / Plan
Gen: NAD, Awake and alert, NCAT
CV: continues to remain RRR, +S1/S2, no m/r/g.
Resp: continues to remain CTAB anteriorly, no rales, wheezes, or rhonchi.
Neuro: CN 2-12 intact, non-focal.
Psych: calm
Pt now comfort care. Cont dilaudid/Ativan PRN hwoever since patient awake and taking some PO, would start roxanol and see if she is comfortable on that. we might need to start looking at other options likely home vs facility for hospice. Hospice
aware.
CT A/P: ACUTE SMALL BOWEL PERFORATION within an ANTERIOR ABDOMINAL WALL HERNIA with PNEUMOPERITONEUM and SEVERE ANTERIOR ABDOMINAL WALL SOFT TISSUE EMPHYSEMA. LARGE 13.3 cm COMPLEX ABSCESS in the lower anterior abdominal wall inferior to the
hernia.� SEVERE PERITONEAL METASTATIC DISEASE (METASTATIC COLON CANCER). � Multiple hepatic metastases.� Severe chronic left hydroureteronephrosis secondary to obstructing malignancy in the left retroperitoneum.� Severe diffuse hepatic steatosis.�
Previous cholecystectomy and sigmoidectomy.
Septic shock due to incarcerated hernia/small bowel perforation/complex abscess:
-presented with abdominal pain associated with nausea and diarrhea
-CT A/P above
-History of metastatic colon cancer to the liver s/p resection
-pt underwent exploratory laparotomy on 10/27/2023 and intervention and treatment of underlying problem was not possible.
-Quoted from Dr. Howell's op note:
'1. Hernia reducible and SB contents viable
2. Frozen pelvis with firm tumor, multiple densely adherent SB loops within the pelvis and adherent to fascia, perforation of small bowel at site of metastatic disease within the fascia, wide feculent contamination within the entire soft tissue
space of the pannus and abdomen
3. < 100 cm proximal small bowel and difficult to determine exact location given prior procedures
4. No good target for enterocolonic bypass, patient goals of care against proximal ostomy
5. Intra-operative discussion with patients daughter and decision maker regarding options, decision to focus on comfort measures only and close abdomen.'
comnfort feeds
Pt now comfort care. Hospice following.
slowly declining
MAMI:
-due to sepsis/dehydration
-with non-AG met acidosis and hyponatremia
Other problems:
Essential HTN: holding losartan
Hyperlipidemia: holding statin pravastatin
DM2: SSI/accuchecks
h/o sigmoidectomy May 2021 for sigmoid carcinoma, s/p 6 months chemotherapy in June 2023, currently on surveillance
Chronic hydronephrosis: Left nephrostomy tube was advised in the past by urology however patient and daughter opted not to do it. Atrophy of the kidney noted on the left side (pt and daughter aware)
Asthma/COPD: Cont Singulair
h/o DVT s/p IVC filter placement followed by removal in December 2021
Anticipated Discharge: 24 - 48 hours
Subjective/Interval History
-
Date of Service: November 04, 2023
comfortable
Objective Data
-
Vital Signs:
Vital Signs
Temp Pulse Resp BP Pulse Ox
97.5 F 80 16 133/65 98
11/04/23 08:37 11/04/23 08:37 11/04/23 08:37 11/04/23 08:37 11/04/23 08:37
I&O
11/03/23 11/04/23 11/05/23
06:59 06:59 06:59
Intake Total 300 / 300 120 / 120
Output Total 250 / 250 775 / 775
Balance 50 / 50 -655 / -655
--- NOTE | 2023-11-04 11:58 | CM ---
Addendum entered by Kiara Lino 11/04/23 12:07:
Patient to be discharged to home with hospice on 11/06/23 in am.
Original Note:
Met with daughter in patient's room. Patient does not meet inpatient hospice criteria. Daughter would like to take patient home on hospice. DH is preference. notified and will come to speak with daughter.
--- NOTE | 2023-11-04 12:10 | HOSPNOTE ---
Spoke with daughter earlier today and she is in agreement to bring patient home on hospice services. The plan is to have equipment ordered and delivered tomorrow 11/05/23. OOH DNR will be needed on chart and transport scheduled. Case management and
Attending aware of plan.
[2023-11-04] MEDS: ROXANOL ORAL CONCENTRATE 10 MG PO (20:05)
[2023-11-04 23:20] VITALS: BP 120/58
[2023-11-05] MEDS: ROXANOL ORAL CONCENTRATE 10 MG PO (05:29)
[2023-11-05 07:00] VITALS: BP 143/72
--- NOTE | 2023-11-05 09:00 | PTCARENOTE ---
patient continues to be on comfort care. No s/s of distress noted. Denies pain at this time. plan of care ongoing.
--- NOTE | 2023-11-05 11:19 | W.PN.HOSP.TC ---
Addendum entered and electronically signed by Santiago Perez MD 11/05/23 16:02:
Daughter updated over the phone
Original Note:
Today's Communication/Plan
-
Monitor vital signs and see plan
Tolerating Roxanol
Plan for home hospice tomorrow
Assessment / Plan
Assessment / Plan
Gen: NAD, Awake and alert, NCAT
CV: continues to remain RRR, +S1/S2, no m/r/g.
Resp: continues to remain CTAB anteriorly, no rales, wheezes, or rhonchi.
Neuro: CN 2-12 intact, non-focal.
Psych: calm
Pt now comfort care. Cont dilaudid/Ativan PRN however since patient awake and taking some PO, would start roxanol and see if she is comfortable on that. Spoke with patient today 11/05 and patient is comfortable on Roxanol. Plan for DC 11/06 on home
hospice. we might need to start looking at other options likely home vs facility for hospice. Hospice aware.
CT A/P: ACUTE SMALL BOWEL PERFORATION within an ANTERIOR ABDOMINAL WALL HERNIA with PNEUMOPERITONEUM and SEVERE ANTERIOR ABDOMINAL WALL SOFT TISSUE EMPHYSEMA. LARGE 13.3 cm COMPLEX ABSCESS in the lower anterior abdominal wall inferior to the
hernia.� SEVERE PERITONEAL METASTATIC DISEASE (METASTATIC COLON CANCER). � Multiple hepatic metastases.� Severe chronic left hydroureteronephrosis secondary to obstructing malignancy in the left retroperitoneum.� Severe diffuse hepatic steatosis.�
Previous cholecystectomy and sigmoidectomy.
Septic shock due to incarcerated hernia/small bowel perforation/complex abscess:
-presented with abdominal pain associated with nausea and diarrhea
-CT A/P above
-History of metastatic colon cancer to the liver s/p resection
-pt underwent exploratory laparotomy on 10/27/2023 and intervention and treatment of underlying problem was not possible.
-Quoted from Dr. Howell's op note:
'1. Hernia reducible and SB contents viable
2. Frozen pelvis with firm tumor, multiple densely adherent SB loops within the pelvis and adherent to fascia, perforation of small bowel at site of metastatic disease within the fascia, wide feculent contamination within the entire soft tissue
space of the pannus and abdomen
3. < 100 cm proximal small bowel and difficult to determine exact location given prior procedures
4. No good target for enterocolonic bypass, patient goals of care against proximal ostomy
5. Intra-operative discussion with patients daughter and decision maker regarding options, decision to focus on comfort measures only and close abdomen.'
comnfort feeds
Pt now comfort care. Hospice following.
slowly declining
MAMI:
-due to sepsis/dehydration
-with non-AG met acidosis and hyponatremia
Other problems:
Essential HTN: holding losartan
Hyperlipidemia: holding statin pravastatin
DM2: SSI/accuchecks
h/o sigmoidectomy May 2021 for sigmoid carcinoma, s/p 6 months chemotherapy in June 2023, currently on surveillance
Chronic hydronephrosis: Left nephrostomy tube was advised in the past by urology however patient and daughter opted not to do it. Atrophy of the kidney noted on the left side (pt and daughter aware)
Asthma/COPD: Cont Singulair
h/o DVT s/p IVC filter placement followed by removal in December 2021
Anticipated Discharge: Within 24 hours
Subjective/Interval History
-
Date of Service: November 05, 2023
Comfortable
Objective Data
-
Vital Signs:
Vital Signs
Temp Pulse Resp BP Pulse Ox
97.9 F 96 20 143/72 96
11/05/23 07:00 11/05/23 07:00 11/05/23 07:00 11/05/23 07:00 11/05/23 08:00
I&O
11/04/23 11/05/23 11/06/23
06:59 06:59 06:59
Intake Total 120 / 120
Output Total 775 / 775 900 / 900
Balance -655 / -655 -900 / -900
--- NOTE | 2023-11-05 11:35 | HOSPNOTE ---
Patient will be discharged home tomorrow, equipment will be delivered today. OOH DNR will be needed on chart and transport needed. Please try to schedule transport in the am. Attending aware and case management.
--- NOTE | 2023-11-05 13:06 | PTCARENOTE ---
Patient denies pain at this time. Daughter at bedside.No s/s of distress noted. Abdomen dressing intact and dry at this time. Plan of care ongoing.
[2023-11-05] MEDS: DILAUDID 0.5 MG IV ×2 (13:23→21:32)
--- NOTE | 2023-11-05 15:38 | CM ---
Patient is scheduled for discharge to home on 11/06/23 with transport at 9:00 am. Once home, Hospice will meet with patient and sign onto hospice services. Daughter will provide continuous care for patient in the home.
[2023-11-05 23:14] VITALS: BP 137/68
[2023-11-06] MEDS: DILAUDID 0.5 MG IV (04:18)
--- NOTE | 2023-11-06 08:19 | W.DCSUMMARY ---
Discharge Summary
Discharge Data
Date of Admission: 10/26/23
Date of Discharge: 11/06/23
-
Pending Results: No
Hospital Course
73-year-old female with past medical history of umbilical hernia, small bowel obstruction, hyponatremia, hypertension, hyperlipidemia, sigmoid carcinoma status post sigmoidectomy with metastasis to liver, diabetes mellitus, asthma/COPD, DVT came to
the hospital with abdominal pain. CT scan showed acute small bowel perforation with anterior abdominal wall hernia with pneumoperitoneum and severe anterior abdominal wall soft tissue emphysema. Patient was then taken in for expiratory laparotomy
and primary repair of incisional hernia. Per surgery given patient metastatic colon cancer with history of partial small bowel resection there is no surgical intervention available besides a proximal ostomy which patient was not interested.
Patient and family was interested in comfort measures with transition to hospice. Patient was then started on comfort measures. Patient was comfortable throughout her hospitalization and since she was able to tolerate oral medications, daughter
decided to take patient home on hospice. On 11/06/2023 patient was discharged home on hospice.
Discharge Plan
-
Patient Disposition: Home with Hospice
Discharge Diagnosis/Procedures: Septic shock due to incarcerated hernia/small bowel perforation/complex abscess
metastatic colon cancer to the liver s/p resection
Chronic hydronephrosis
Asthma/chronic obstructive pulmonary disease
History of deep vein thrombus
Diet: Other diet
Additional Diets: Comfort feeds
Activity: As tolerated
Driving Restrictions: No driving
Bathing Restrictions: None
Activity Restrictions/Additional Instructions:
Please follow-up with hospice physician
Referrals:
Yovana Duarte DO [Family Provider] - in less than 1 week
Prescriptions:
New
morphine concentrate 100 mg/5 mL (20 mg/mL) Solution
5 mg PO Q3HPRN PRN (Reason: moderate pain and/or dyspnea) Qty: 15 0RF
Rx Instructions:
5mg or 0.25mL every 3 hours as needed
lorazepam 2 mg/mL Concentrate
0.5 mg PO Q4HPRN PRN (Reason: anxiety or restlessness) Qty: 20 0RF
Rx Instructions:
0.5mg every 4 hours as needed
Discontinued
pravastatin 40 MG tablet
40 mg PO QPM
Hold Instructions: Resume on 11/05/23. tll liver tests are stable
montelukast 10 MG tablet
10 mg PO QPM
losartan 25 mg Tablet
25 mg PO DAILY
insulin asp prt-insulin aspart [Novolog Mix 70-30FlexPen U-100] 100 unit/mL (70-30) Insulin Pen
12 unit SC QPM
Discharge Orders:
Discharge Patient (As Directed); Ordered 11/06/23
Ordered By: Santiago Perez
Discharge Date and Time
Discharge Date/Time: 11/06/23 10:49
[2023-11-06 08:47] VITALS: BP 119/55
--- NOTE | 2023-11-06 09:24 | CM ---
Patient is for discharge to home with initiation of in-home hospice with hospice. Daughter Zeenat is with patient and will care for patient when home. Transport has been scheduled for 9:45am.
[2023-11-06] MEDS: ROXANOL ORAL CONCENTRATE 10 MG PO (10:39)
--- NOTE | 2023-11-06 10:41 | W.PN.HOSP.TC ---
Today's Communication/Plan
-
Monitor vitals
see plan
DC home on hospice
Time of discharge 34 minutes
Assessment / Plan
Assessment / Plan
Gen: NAD, Awake and alert, NCAT
Resp: continues to remain CTAB anteriorly
Neuro: CN 2-12 intact, non-focal.
Psych: calm
Pt now comfort care. Cont dilaudid/Ativan PRN however since patient awake and taking some PO, would start roxanol and see if she is comfortable on that. Spoke with patient today 11/05 and patient is comfortable on Roxanol. Plan for DC 11/06 on home
hospice.
CT A/P: ACUTE SMALL BOWEL PERFORATION within an ANTERIOR ABDOMINAL WALL HERNIA with PNEUMOPERITONEUM and SEVERE ANTERIOR ABDOMINAL WALL SOFT TISSUE EMPHYSEMA. LARGE 13.3 cm COMPLEX ABSCESS in the lower anterior abdominal wall inferior to the
hernia.� SEVERE PERITONEAL METASTATIC DISEASE (METASTATIC COLON CANCER). � Multiple hepatic metastases.� Severe chronic left hydroureteronephrosis secondary to obstructing malignancy in the left retroperitoneum.� Severe diffuse hepatic steatosis.�
Previous cholecystectomy and sigmoidectomy.
Septic shock due to incarcerated hernia/small bowel perforation/complex abscess:
-presented with abdominal pain associated with nausea and diarrhea
-CT A/P above
-History of metastatic colon cancer to the liver s/p resection
-pt underwent exploratory laparotomy on 10/27/2023 and intervention and treatment of underlying problem was not possible.
-Quoted from Dr. Howell's op note:
'1. Hernia reducible and SB contents viable
2. Frozen pelvis with firm tumor, multiple densely adherent SB loops within the pelvis and adherent to fascia, perforation of small bowel at site of metastatic disease within the fascia, wide feculent contamination within the entire soft tissue
space of the pannus and abdomen
3. < 100 cm proximal small bowel and difficult to determine exact location given prior procedures
4. No good target for enterocolonic bypass, patient goals of care against proximal ostomy
5. Intra-operative discussion with patients daughter and decision maker regarding options, decision to focus on comfort measures only and close abdomen.'
comnfort feeds
Pt now comfort care. Hospice following.
slowly declining
MAMI:
-due to sepsis/dehydration
-with non-AG met acidosis and hyponatremia
Other problems:
Essential HTN: holding losartan
Hyperlipidemia: holding statin pravastatin
DM2: SSI/accuchecks
h/o sigmoidectomy May 2021 for sigmoid carcinoma, s/p 6 months chemotherapy in June 2023, currently on surveillance
Chronic hydronephrosis: Left nephrostomy tube was advised in the past by urology however patient and daughter opted not to do it. Atrophy of the kidney noted on the left side (pt and daughter aware)
Asthma/COPD: Cont Singulair
h/o DVT s/p IVC filter placement followed by removal in December 2021
Anticipated Discharge: Today
Subjective/Interval History
-
Date of Service: November 06, 2023
Denies pain
Objective Data
-
Vital Signs:
Vital Signs
Temp Pulse Resp BP Pulse Ox
98 F 82 20 119/55 97
11/06/23 08:47 11/06/23 08:47 11/06/23 08:47 11/06/23 08:47 11/06/23 08:47
I&O
11/05/23 11/06/23 11/07/23
06:59 06:59 06:59
Intake Total 100 / 100
Output Total 900 / 900 650 / 650
Balance -900 / -900 -550 / -550
== END 2023-11-06 10:49 | disposition hospice, home (50) | DRG 853 ==
LOC: 2 NORTH 22:11
PROVIDERS: Nurse Practitioner; Nurse Practitioner Primary Care; Registered Nurse; ADMITTING PHYSICIAN Surgery; ATTENDING PHYSICIAN Internal Medicine; CONSULT PHYSICIAN Internal Medicine Hematology & Oncology; EMERGENCY PHYSICIAN Student in an Organized Health Care Education/Training Program; FAMILY PHYSICIAN Family Medicine; OTHER PHYSICIAN Internal Medicine Critical Care Medicine
PROC: 0WJG0ZZ Inspection of Peritoneal Cavity, Open Approach (ICD-10-PCS; 2023-10-26)
DX: A41.9 Sepsis, unspecified organism (principal); K63.1 Perforation of intestine (nontraumatic); N17.0 Acute kidney failure with tubular necrosis; R65.21 Severe sepsis with septic shock; K65.9 Peritonitis, unspecified; K72.00 Acute and subacute hepatic failure without coma; K42.0 Umbilical hernia with obstruction, without gangrene; E87.1 Hypo-osmolality and hyponatremia; C18.7 Malignant neoplasm of sigmoid colon; C78.6 Secondary malignant neoplasm of retroperitoneum and peritoneum; C78.7 Secondary malignant neoplasm of liver and intrahepatic bile duct; T79.7XXA Traumatic subcutaneous emphysema, initial encounter; E87.20 Acidosis, unspecified; N13.30 Unspecified hydronephrosis; Z68.41 Body mass index [BMI] 40.0-44.9, adult; Z51.5 Encounter for palliative care; J44.9 Chronic obstructive pulmonary disease, unspecified; E11.649 Type 2 diabetes mellitus with hypoglycemia without coma; K76.0 Fatty (change of) liver, not elsewhere classified; E78.00 Pure hypercholesterolemia, unspecified; E66.01 Morbid (severe) obesity due to excess calories; N26.1 Atrophy of kidney (terminal); K66.0 Peritoneal adhesions (postprocedural) (postinfection); I10 Essential (primary) hypertension; K58.9 Irritable bowel syndrome, unspecified; Z87.891 Personal history of nicotine dependence; Z90.49 Acquired absence of other specified parts of digestive tract; Z86.718 Personal history of other venous thrombosis and embolism; Z85.038 Personal history of other malignant neoplasm of large intestine; Z79.4 Long term (current) use of insulin; Z88.2 Allergy status to sulfonamides; Z88.7 Allergy status to serum and vaccine; Z88.8 Allergy status to other drugs, medicaments and biological substances; Z88.1 Allergy status to other antibiotic agents; Z91.041 Radiographic dye allergy status; Z66 Do not resuscitate; Z86.16 Personal history of COVID-19
CPT/HCPCS: 71046; 74176; 80053; 81003; 81015; 82248; 82962; 83605; 83735; 84100; 85025; 85027; 85610; 85730; 86850; 86900; 86901; 87040; 87070; 87075; 87076; 87077; 87086; 87149; 87185; 87186; 87205; 88112; 93005; 96374; 99291

== ENCOUNTER 2023-11-23 14:58 | Inpatient (IN) | payer OTHER, SELFPAY ==
[2023-11-23 13:35] VITALS: BP 121/62
--- NOTE | 2023-11-23 13:39 | ED.GENMED ---
History of Present Illness
General
Chief Complaint: Cancer Problem
Source: patient and other (hospice team)
Time Seen by Provider: 11/23/23 13:29
Travel History
Have you had any contact with someone who has COVID-19?: Unable to Answer
Do you have any symptoms of coronavirus? Fever > 100 degrees, chills, cough, shortness of breath, sore throat, loss of taste or smell, muscle aches, or headache?: Unable to Answer
History of Present Illness
History of Present Illness:
73-year-old female with past medical history of metastatic colon cancer to the liver status post bowel perforation with inability to proceed further secondary to the significant metastases, large abdominal wound that has dehisced and persistently
leaking stool significant pain, currently on hospice at home but family unable to continue managing the patient at home was ultimately sent to the ER to be admitted for him specific services. I am unable to obtain any history from the patient and
all history was obtained from hospice team.
Past History
Past History
ED Past Medical History: Asthma, Cancer (Colon CA, ), COPD, HTN, Hypercholesterolemia, NIDDM and Other (DVT, IVC filter removed, Diverticulitis, IBS, Anemia, Umbilical hernia)
ED Past Surgical History: Bowel resection, Cholecystectomy, Gynecological (Ectopic ) and Other (Cyst removed from liver/Pancreas, Port)
Social History
Tobacco: Former smoker
Alcohol: None
Drug: None
Personal:
Living: with family
Review of Systems
Review of Systems
All Other Systems: ROS reviewed and negative except as documented in HPI and ROS
Phy Exam
Physical Exam
Physical Exam:
GENERAL: Alert And will respond to voice but is during questions, appears older than stated age is unwell, pale
EYE: conjunctiva clear
Head: Normocephalic atraumatic
NECK: Supple,
ENT: Dry mucous membranes
LUNGS: no acute respiratory distress
NEUROLOGICAL: Alert
SKIN:Somewhat mottled and cool to the touch
MUSCULOSKELETAL: No edema
PSYCH: Able to assess
Scores
Heart Failure Risk
Heart Failure Risk Score: Not Applicable
Heart Score for Chest Pain Patients
STEMI patient?: Not applicable
Withdrawal Assessment of Alcohol
Withdrawal Assessment Completed?: Not applicable
Course
Orders/Labs/Results
Orders:
Orders
11/23/23 13:31
Lorazepam [Ativan] 1 mg PO Q2HPRN PRN
Morphine Sulfate 2 mg IV NOW STA
Vital Signs
Initial and Last Documented VS:
Initial Vital Signs
Temp Pulse Resp BP Pulse Ox
98.3 F 90 13 121/62 97
11/23/23 13:35 11/23/23 13:35 11/23/23 13:35 11/23/23 13:35 11/23/23 13:35
Last Documented Vital Signs
Temp Pulse Resp BP Pulse Ox
98.3 F 90 13 121/62 96
11/23/23 13:35 11/23/23 13:35 11/23/23 13:35 11/23/23 13:35 11/23/23 13:41
MDM/Problems Addressed
Differential Diagnosis Includes:
End-of-life care metastatic: CA, infectious etiology secondary to open abdominal wound
MDM/Problems Addressed:
73-year-old female sent to the emergency department for ultimate admission and inpatient hospice services after family unable to continued care at home. Hospice team is currently in the emergency department and requesting a morphine infusion and as
needed Ativan be ordered there is a room upstairs for the patient already. Will notify hospitalist team for admission.
Chronic conditions affecting care: Cancer
Acute Exacerbation and/or Progression of Chronic Illness: Cancer
*Pulse Oximetry
Patient hypoxic: no
*Critical Care Note
Total Time (30-74mins, 75-104mins- exclusive of procedures): Not Applicable
Data Reviewed
Review of Other/Old Records Reveals: Labs, Records, Radiology Studies, Operative Reports and Discharge Summary
Patient Management
Discussion with other providers: Hospitalist
Escalation/DeEscalation of care consider admission/obs:
Hospitalist team accepts for continued evaluation and treatment.
ED Attending Note
-
Portions of this chart may have been created with voice recognition software.� Occasional wrong word or��sound alike� substitutions may have occurred due to the inherent limitations of voice recognition software.
Discharge Plan
Departure
Patient Disposition: Admit
Date of Disposition: 11/23/23
Time of Disposition: 13:39
Presentation/result/management discussed w/ accepting MD/DO: Hospitalist
Discharge Problem:
Admission for end of life care, Metastatic colon cancer to liver, Abdominal wound dehiscence
Prescriptions:
No Action
morphine concentrate 100 mg/5 mL (20 mg/mL) Solution
5 mg PO Q3HPRN PRN (Reason: moderate pain and/or dyspnea) Qty: 15 0RF
Rx Instructions:
5mg or 0.25mL every 3 hours as needed
lorazepam 2 mg/mL Concentrate
0.5 mg PO Q4HPRN PRN (Reason: anxiety or restlessness) Qty: 20 0RF
Rx Instructions:
0.5mg every 4 hours as needed
Interventions
Interventions:
*Risk Screen - Suicide Last Done: 11/23/23 13:37
*General Assessment Last Done: 11/23/23 13:37
*Neglect/Abuse Screening Last Done: 11/23/23 13:37
*ED COVID-19 Vaccine History Last Done: 11/23/23 13:41
[2023-11-23] MEDS: MORPHINE SULFATE 2 MG IV ×2 (13:57→15:45)
[2023-11-23 14:00] VITALS: BP 104/69
--- NOTE | 2023-11-23 14:28 | ADM.HSP ---
Admission - Hospice
History of Present Illness
Patient is a 73 years old female with metastatic colon carcinoma was recently discharged with home hospice being admitted for initiation of inpatient hospice today.
Apparently patient has a draining wound as well as poorly controlled symptoms at home.
Reason for Hospice Admission
Comfort measure.
Wound care
Review of Systems
Unable to obtain full review of systems at this time due to: Acuity
Physical Exam
Temp Pulse Resp BP Pulse Ox
98.3 F 90 13 121/62 96
11/23/23 13:35 11/23/23 13:35 11/23/23 13:35 11/23/23 13:35 11/23/23 13:41
Assessment/Medication Plan
Generic Name Dose Route Start Last Admin
Trade Name Freq PRN Reason Stop Dose Admin
Lorazepam 1 mg 11/23/23 13:31
Lorazepam 1 Mg Tablet PO 12/21/23 13:30
Q2HPRN PRN
anxiety
[2023-11-23 15:11] VITALS: BP 102/60
[2023-11-23] MEDS: MORPHINE 100 IV (15:39)
--- NOTE | 2023-11-23 16:02 | CM ---
Reviewed the chart notes. Patient resides with her daughter in an apartment on the first floor. Patient has a cane at home if needed but typically gets around without any device. Patient current with [facility] after last hospitalization.
Patient brought to hospital for inpatient management of symptoms. CM continues to be available to patient/family and is monitoring medical plan for needs at discharge.
Plan: Inpatient hospice.
[2023-11-23 23:31] VITALS: BP 83/50
[2023-11-24 07:06] VITALS: BP 90/40
--- NOTE | 2023-11-24 09:00 | WOUNDNOTE ---
WON RN NOTE: Patient admitted for end of life care and inpatient hospice, was on hospice at home. PMH: for metastatic Colon carcinoma had Sigmoidectomy in past and cysts drained. Now abdominal incision has dehisced and has an enterocutaneous fistula
for large amt of drainage. Currently using 9x6' size Pineda wound pouch to contain drainage. Has unstageable PI on Sacrum, foam in use. Patient is on comfort care, sleeping at moment. Spoke to LINDEN Coker and hospice nurse who stated that changing
appliance/ dressing was very painful for patient, now on morphine drip, family at bedside. Brought extra supply of Pineda wound pouch and ostomy starter kit with Pineda seals, placed in clean utility room near door on shelf. Asked Hospice nurse who
has been following patient at home and familiar with changing Pineda system, to call this creative writer if need assist in changing. Hospice nurse shown where supplies are located. Otherwise will sign off unless needed.
--- NOTE | 2023-11-24 09:54 | HOSPNOTE ---
Patient is on hospice and appears to be very comfortable. Patient is on a morphine drip 2mg and has not required any PRN doses this am. Patient is non verbal will open eyes briefly to voice and no urine output noted this am, scant amount of dark
janell urine present. Care performed and patient was turned and repositioned. Patient will be seen daily by shoemaking cutter.
--- NOTE | 2023-11-24 10:58 | CM ---
Reviewed the chart notes. The patient is on a morphine gtt. CM continues to be available to patient/family and is monitoring medical plan for needs at discharge.
Plan: Comfort care.
--- NOTE | 2023-11-24 16:07 | W.PN.HOSP.TC ---
Today's Communication/Plan
-
Comfort care/hospice
Assessment / Plan
Assessment / Plan
Metastatic colon carcinoma
Failure to thrive.
Poorly controlled pain.
Continue hospice care.
Continue IV morphine drip titrating to comfort.
Continue IV benzodiazepine.
Secretion management
Leija catheter for comfort.
Anticipated Discharge: 24 - 48 hours
Subjective/Interval History
-
Date of Service: November 24, 2023
Objective Data
-
Vital Signs:
Vital Signs
Temp Pulse Resp BP Pulse Ox
98.1 F 91 18 90/40 94
11/24/23 07:06 11/24/23 07:06 11/24/23 07:06 11/24/23 07:06 11/24/23 10:59
I&O
11/23/23 11/24/23 11/25/23
06:59 06:59 06:59
Output Total 240 / 240
Balance -240 / -240
Physical Exam
-
General: Well Developed and No Apparent Distress
HEENT: Normocephalic, Atraumatic and Moist Mucous Membranes
Respiratory: Clear to Auscultation
Cardiac: Regular Rhythm and S1/S2; Negative Murmur, Rub or Gallop
GI: Soft, Nontender, Nondistended and Normal Bowel Sounds; Negative Organomegaly
Rectal: Deferred by Provider
Musculoskeletal: No Clubbing, No Cyanosis and No Edema
Skin: Negative Rash
Neuro: Nonfocal/Grossly Intact and Other (Minimally responsive while on IV morphine)
[2023-11-24 19:23] VITALS: BP 76/43
--- NOTE | 2023-11-25 05:05 | DOWNTIME ---
There was a [facility] [employer] Downtime on 11/25/2023 from 0111 to 11/25/2023 at 0405. Downtime documentation of patient's care, including medication administrations, has been reconciled in the electronic record per guidelines. Refer to the
patient's paper chart under the miscellaneous tab to see printed paper medication records and downtime forms.
[2023-11-25 07:35] VITALS: BP 69/36
[2023-11-25] MEDS: MORPHINE 100 IV (10:54)
--- NOTE | 2023-11-25 12:38 | HOSPNOTE ---
Patient was washed and repositioned. Patient is completely unresponsive at this time. Emotional support given to daughter who is now accepting of impending . Patient will be seen daily by hospice nurse.
--- NOTE | 2023-11-25 15:08 | HOSPNOTE ---
Called the daughter and she will be in shortly. She is calling some friends to come with her. We will certainly reach out for bereavement services. Attending and floor RN aware that daughter will be coming back to the hospital.
--- NOTE | 2023-11-25 15:47 | W.PN.DEATH ---
Pronouncement of
-
Called to see patient to pronounce.
No spontaneous heart tones or respirations noted.
Patient not responsive to verbal stimuli.
Patient is pronounced .
Time of : 14:57
Date of : 11/25/23
Cause of : Colon cancer
Family Notified: Yes
== END 2023-11-25 17:14 | disposition expired | DRG 951 ==
LOC: 2 NORTH 14:58
PROVIDERS: ADMITTING PHYSICIAN Internal Medicine; EMERGENCY PHYSICIAN Emergency Medicine
DX: Z51.5 Encounter for palliative care (principal); C18.9 Malignant neoplasm of colon, unspecified; C78.7 Secondary malignant neoplasm of liver and intrahepatic bile duct; T81.30XA Disruption of wound, unspecified, initial encounter; Z87.891 Personal history of nicotine dependence; F41.9 Anxiety disorder, unspecified; R62.7 Adult failure to thrive
CPT/HCPCS: 87070; 96374; 99285